=== PATIENT | female | born 1990 | race Caucasian/White ===

== ENCOUNTER 2016-03-15 08:10 | Emergency (ER) | payer OTHER ==
[2016-03-15] MEDS ORDERED: NS 0.9% 1000 ML* 1,000 ML IV ONE (09:08)
[2016-03-15] MEDS ORDERED: Ketorolac INJ* 30 MG/ML 1 ML VIAL IV ONE (09:08)
[2016-03-15] MEDS ORDERED: Ondansetron INJ* 2 MG/ML VIAL IV ONE (09:08)
[2016-03-15] MEDS ORDERED: Ketorolac INJ* 30 MG/ML 1 ML VIAL ONE (09:09)
[2016-03-15 09:10] LABS: Hematocrit 36 % (35-47); Hemoglobin 12.1 g/dl (12.0-16.0); Mean Corpuscular HGB Conc 34 g/dl (31-36); Mean Corpuscular Hemoglobin 32 pg (27-31); Mean Corpuscular Volume 95 fL (80-97); Mean Platelet Volume 7 um3 (7.4-10.4); Red Blood Count 3.74 10^6/ul (4.0-5.4); Red Cell Distribution Width 14 % (10.5-15); White Blood Count 10.2 10^3/ul (3.5-10.8)
[2016-03-15 09:15] LABS: Urine Bacteria Absent (Absent); Urine Bilirubin Negative (Negative); Urine Glucose Negative (Negative); Urine Nitrite Negative (Negative)
[2016-03-15 09:29] LABS: Albumin 3.9 g/dL (3.2-5.2); BUN/Creatinine Ratio 11.9 (8-20); C Reactive Protein 19.81 mg/L (< 5.00); EGFR African American 105.4 (>60); Globulin 3.2 g/dL (2-4); Potassium 4.4 mmol/L (3.5-5.0); Total Bilirubin 0.4 mg/dL (0.2-1.0); Total Protein 7.1 g/dL (6.4-8.9)
[2016-03-15 11:02] VITALS: BP 94/62
--- NOTE | 2016-03-15 11:18 | ED ---
Milka Pedersen Matthew, scribed for Peg Ricardo MD on 03/15/16 at 0902 . Abdominal Pain/Female - HPI Summary HPI Summary: A 25 y/o female presents to the ED with intermittent, sudden lower pelvic pain since 5 days ago. The pain is rated 3/10 in severity and 9/10 in severity at its worst, described as cramping, and radiates to the back, anus, and hips. Associated symptoms include nausea, fever, chills, diaphoresis, constipation - last BM this morning, and occasionally wakes up in the middle of the night to urinate. The patient denies vomiting, diarrhea, dysuria, blood w/ stool, chest pain, and SOB. The pain is partially alleviated by ibuprofen. The patient states she recently started control for the first time just before her period. She then stopped the control after abdominal cramping. She had similar symptoms 6 months ago during her period. The patient also normally has pain with BM during her period, which starts just before and alleviated when her period ends; however, the symptoms persist after her period. Her menstrual cycle started 8 days ago. - History of Current Complaint Chief Complaint: EDAbdPain Stated Complaint: ABD CRAMPING Time Seen by Provider: 03/15/16 08:41 Hx Obtained From: Patient ?: No Onset/Duration: Sudden Onset, Lasting Days, Still Present Timing: Intermittent Episode Lasting Severity Initially: Moderate Severity Currently: Moderate Pain Intensity: 9 Pain Scale Used: 0-10 Numeric Location: Other - Pelvic Radiates: Yes Radiates to: Back, Other - anus, hips Character: Cramping Alleviating Factor(s): Medications - ibuprofen Associated Signs and Symptoms: Positive: Diaphoresis, Fever, Back Pain, Constipation, Nausea. Negative: Chest Pain, Blood in Stool, Vomiting, Diarrhea Allergies/Adverse Reactions: Allergies Allergy/AdvReac Type Severity Reaction Status Date / Time No Known Allergies Allergy Verified 03/15/16 08:19 PMH/Surg Hx/FS Hx/Imm Hx Previously Healthy: Yes Respiratory History: Denies: Hx Asthma Infectious Disease History: No Infectious Disease History: Denies: Traveled Outside the [place] in Last 30 Days - Family History Family History: FHx of thyroid disease - Social History Alcohol Use: Occasionally Hx Substance Use: No Substance Use Type: Reports: None Hx Tobacco Use: No Smoking Status (MU): Never Smoked Tobacco Review of Systems Positive: Fever, Chills, Skin Diaphoresis Eyes: Negative Positive: Sore Throat - yesterday Cardiovascular: Negative Negative: Chest Pain Respiratory: Negative Positive: Abdominal Pain - pelvic pain , Nausea, Other - contipation. Negative : Vomiting, Diarrhea Genitourinary: Other - wakes up in the middle of the night to urinate Musculoskeletal: Negative Skin: Negative Neurological: Negative Psychological: Normal All Other Systems Reviewed And Are Negative: Yes Physical Exam Triage Information Reviewed: Yes Vital Signs On Initial Exam: Initial Vitals Temp Pulse Resp BP Pulse Ox 99.0 F 83 15 93/63 99 03/15/16 08:19 03/15/16 08:19 03/15/16 08:19 03/15/16 08:19 03/15/16 08:19 Vital Signs Reviewed: Yes Appearance: Positive: Well-Nourished, Pain Distress - tearful on exam Skin: Positive: Warm, Skin Color Reflects Adequate Perfusion, Dry Eyes: Positive: EOMI, SHAWNA ENT: Positive: Pharynx normal Neck: Positive: Supple, Nontender Respiratory/Lung Sounds: Positive: Clear to Auscultation, Breath Sounds Present. Negative: Rales, Rhonchi, Wheezes Cardiovascular: Positive: RRR. Negative: Murmur Abdomen Description: Positive: Soft, Other: - Diffuse abdominal tenderness. Negative: Distended, Guarding Bowel Sounds: Positive: Present Musculoskeletal: Positive: Strength/ROM Intact. Negative: Edema Left, Edema Right Neurological: Positive: Normal, Sensory/Motor Intact, Alert, Oriented to Person Place, Time, CN Intact II-III - II-XII Psychiatric: Positive: Normal, Affect/Mood Appropriate Diagnostics - Vital Signs Vital Signs Temp Pulse Resp BP Pulse Ox 03/15/16 08:19 99.0 F 83 15 93/63 99 - Laboratory Lab Results: Lab Results 03/15/16 03/15/16 03/15/16 Range/Units 08:45 09:01 09:01 WBC 10.2 (3.5-10.8) 10^3/ul RBC 3.74 L (4.0-5.4) 10^6/ul Hgb 12.1 (12.0-16.0) g/dl Hct 36 (35-47) % MCV 95 (80-97) fL MCH 32 H (27-31) pg MCHC 34 (31-36) g/dl RDW 14 (10.5-15) % Plt Count 236 (150-450) 10^3/ul MPV 7 L (7.4-10.4) um3 Neut % (Auto) 75.5 (38-83) % Lymph % (Auto) 13.3 L (25-47) % [place] % (Auto) 10.4 H (1-9) % Eos % (Auto) 0.5 (0-6) % Baso % (Auto) 0.3 (0-2) % Absolute Neuts (auto) 7.7 (1.5-7.7) 10^3/ul Absolute Lymphs (auto) 1.4 (1.0-4.8) 10^3/ul Absolute Monos (auto) 1.1 H (0-0.8) 10^3/ul Absolute Eos (auto) 0.1 (0-0.6) 10^3/ul Absolute Basos (auto) 0 (0-0.2) 10^3/ul Absolute Nucleated RBC 0 10^3/ul Nucleated RBC % 0 Sodium 137 (133-145) mmol/L Potassium 4.4 (3.5-5.0) mmol/L Chloride 103 (101-111) mmol/L Carbon Dioxide 26 (22-32) mmol/L Anion Gap 8 (2-11) mmol/L BUN 10 (6-24) mg/dL Creatinine 0.84 (0.51-0.95) mg/dL Est GFR ( Amer) 105.4 (>60) Est GFR (Non-Af Amer) 82.0 (>60) BUN/Creatinine Ratio 11.9 (8-20) Glucose 86 (70-100) mg/dL Lactic Acid (0.5-2.0) mmol/L Calcium 9.0 (8.6-10.3) mg/dL Total Bilirubin 0.40 (0.2-1.0) mg/dL AST 17 (13-39) U/L ALT 8 (7-52) U/L Alkaline Phosphatase 32 L (34-104) U/L C-Reactive Protein 19.81 H (< 5.00) mg/L Total Protein 7.1 (6.4-8.9) g/dL Albumin 3.9 (3.2-5.2) g/dL Globulin 3.2 (2-4) g/dL Albumin/Globulin Ratio 1.2 (1-3) Lipase 25 (11.0-82.0) U/L Urine Color Straw Urine Appearance Clear Urine pH 6.0 (5-9) Ur Specific [place] 1.003 L (1.010-1.030) Urine Protein Negative (Negative) Urine Ketones Negative (Negative) Urine Blood 1+ H (Negative) Urine Nitrate Negative (Negative) Urine Bilirubin Negative (Negative) Urine Urobilinogen Negative (Negative) Ur Leukocyte Esterase Negative (Negative) Urine WBC (Auto) Absent (Absent) Urine RBC (Auto) 1+(3-5/hpf) H (Absent) Urine Bacteria Absent (Absent) Urine Glucose Negative (Negative) 03/15/16 Range/Units 09:01 WBC (3.5-10.8) 10^3/ul RBC (4.0-5.4) 10^6/ul Hgb (12.0-16.0) g/dl Hct (35-47) % MCV (80-97) fL MCH (27-31) pg MCHC (31-36) g/dl RDW (10.5-15) % Plt Count (150-450) 10^3/ul MPV (7.4-10.4) um3 Neut % (Auto) (38-83) % Lymph % (Auto) (25-47) % [place] % (Auto) (1-9) % Eos % (Auto) (0-6) % Baso % (Auto) (0-2) % Absolute Neuts (auto) (1.5-7.7) 10^3/ul Absolute Lymphs (auto) (1.0-4.8) 10^3/ul Absolute Monos (auto) (0-0.8) 10^3/ul Absolute Eos (auto) (0-0.6) 10^3/ul Absolute Basos (auto) (0-0.2) 10^3/ul Absolute Nucleated RBC 10^3/ul Nucleated RBC % Sodium (133-145) mmol/L Potassium (3.5-5.0) mmol/L Chloride (101-111) mmol/L Carbon Dioxide (22-32) mmol/L Anion Gap (2-11) mmol/L BUN (6-24) mg/dL Creatinine (0.51-0.95) mg/dL Est GFR ( Amer) (>60) Est GFR (Non-Af Amer) (>60) BUN/Creatinine Ratio (8-20) Glucose (70-100) mg/dL Lactic Acid 0.8 (0.5-2.0) mmol/L Calcium (8.6-10.3) mg/dL Total Bilirubin (0.2-1.0) mg/dL AST (13-39) U/L ALT (7-52) U/L Alkaline Phosphatase (34-104) U/L C-Reactive Protein (< 5.00) mg/L Total Protein (6.4-8.9) g/dL Albumin (3.2-5.2) g/dL Globulin (2-4) g/dL Albumin/Globulin Ratio (1-3) Lipase (11.0-82.0) U/L Urine Color Urine Appearance Urine pH (5-9) Ur Specific [place] (1.010-1.030) Urine Protein (Negative) Urine Ketones (Negative) Urine Blood (Negative) Urine Nitrate (Negative) Urine Bilirubin (Negative) Urine Urobilinogen (Negative) Ur Leukocyte Esterase (Negative) Urine WBC (Auto) (Absent) Urine RBC (Auto) (Absent) Urine Bacteria (Absent) Urine Glucose (Negative) Result Diagrams: 03/15/16 09:01 03/15/16 09:01 Lab Statement: Any lab studies that have been ordered have been reviewed, and results considered in the medical decision making process. Abdominal Pain Fem Course/Dx - Course Course Of Treatment: 25 yo female with pelvic pain with periods, she barely tolerated a pelvic exam which looked normal, labs normal, better after toradol. Pt didn't want small course of narcotics, will take naprosyn and tylenol when her period comes and f/u with schedule clerk - Diagnoses Provider Diagnoses: Pelvic pain Discharge - Discharge Plan Condition: Stable Disposition: HOME Patient Education Materials: Pelvic Pain in Women (ED) Referrals: Stephany Vargas NP [Primary Care Provider] - The documentation as recorded by the Milka ca Matthew accurately reflects the service I personally performed and the decisions made by me, Peg Ricardo MD.
== END 2016-03-15 12:34 | disposition home or self-care (01) ==
LOC: ED 08:10
DX: R10.2 Pelvic and perineal pain (principal)
CPT/HCPCS: 36415; 80053; 81003; 81015; 83605; 83690; 85025; 86140; 96360; 96374; 96375; 99282; J1885; J2405

== ENCOUNTER 2016-03-22 12:54 | Emergency (ER) | payer OTHER ==
[2016-03-22 15:27] LABS: Hematocrit 38 % (35-47); Hemoglobin 12.5 g/dl (12.0-16.0); Mean Corpuscular HGB Conc 33 g/dl (31-36); Mean Corpuscular Hemoglobin 31 pg (27-31); Mean Corpuscular Volume 94 fL (80-97); Mean Platelet Volume 7 um3 (7.4-10.4); Red Blood Count 3.98 10^6/ul (4.0-5.4); Red Cell Distribution Width 14 % (10.5-15); White Blood Count 10.1 10^3/ul (3.5-10.8)
[2016-03-22 15:35] LABS: Urine Bilirubin Negative (Negative); Urine Glucose Negative (Negative); Urine Nitrite Negative (Negative)
[2016-03-22 15:43] LABS: ALT 9 U/L (7-52); AST 13 U/L (13-39); Alkaline Phosphatase 48 U/L (34-104); Anion Gap 5 mmol/L (2-11); BUN/Creatinine Ratio 8.4 (8-20); Blood Urea Nitrogen 7 mg/dL (6-24); CO2 Carbon Dioxide 30 mmol/L (22-32); Calcium 9.4 mg/dL (8.6-10.3); Chloride 99 mmol/L (101-111); EGFR African American 106.9 (>60); EGFR Non-African American 83.1 (>60); Globulin 3.7 g/dL (2-4); Glucose 85 mg/dL (70-100); Lipase 20 U/L (11.0-82.0); Sodium 134 mmol/L (133-145); Total Protein 7.7 g/dL (6.4-8.9)
--- NOTE | 2016-03-22 16:30 | RAD ---
HISTORY: Pelvic pain, fever, chills COMPARISONS: None TECHNIQUE: Multiple transverse and longitudinal ultrasound images were obtained of the pelvis using grayscale, color Doppler, and spectral Doppler imaging using the endovaginal transducer. FINDINGS: UTERUS: The uterus measures 6.9 x 2.9 x 3.7 cm. There is a complex fluid collection noted between the uterus and the right ovary measuring approximately 9.3 x 5.6 x 8 cm in size. There is a fluid-fluid level. There are thick internal septations. ENDOMETRIUM: The endometrial stripe is smooth. The endometrium measures 0.7 cm in thickness. CUL-DE-SAC: There is no free fluid within the cul-de-sac. RIGHT OVARY: The right ovary measures 4.6 x 3.7 x 4 cm. Multiple follicles are noted. Normal arterial and venous waveforms are identifiable within the ovary on spectral Doppler imaging. As noted above, there is a complex fluid collection between the right ovary and the uterus. LEFT OVARY: The left ovary measures 4 x 3 x 2.8 cm. Normal arterial and venous waveforms are identifiable within the ovary on spectral Doppler imaging. Multiple follicles are noted. BLADDER: The bladder is not well visualized. IMPRESSION: THERE IS A COMPLEX FLUID COLLECTION BETWEEN THE UTERUS AND THE RIGHT OVARY MEASURING UP TO 9.3 CM IN SIZE. GIVEN THE HISTORY OF FEVER AND CHILLS AND PAIN, DIFFERENTIAL INCLUDES TUBO-OVARIAN ABSCESS
--- NOTE | 2016-03-22 16:47 | ED ---
Abdominal Pain/Female - HPI Summary HPI Summary: 25 F presents with pelvic pain for 3 weeks. She has seen last week and diagnosed with constipation. She has been taking miralax and senna which has helped with her constipation. She had a normal BM today. She admits to chilling, vomiting, and anorexia. She denies any fever. She states her pain increases every time she eat something. Her LMP was 3 weeks ago. - History of Current Complaint Pain Intensity: 5 <Kinsey Mclaughlin - Last Filed: 03/22/16 19:04> - HPI Summary HPI Summary: Patient denies vomiting during my examination with her, mild episode of chills. pain resolved with Toradol, regular BMS with current bowel regimen, still has rectal fullness and feeling like has to have BM after voiding. no urinary sytmpoms, recent STD testing at , patient states was negative. 3 weeks ago started OCPs, stopped after 1 week due to abdominal cramping, lower pelvic pain ever since. - History of Current Complaint Hx Obtained From: Patient, Family/Community Organization Worker - friend ?: No Timing: Constant Severity Initially: Moderate Severity Currently: Moderate Pain Scale Used: 0-10 Numeric <Anai Shane - Last Filed: 03/22/16 23:14> - History of Current Complaint Chief Complaint: EDAbdPain Stated Complaint: ABD PAIN Time Seen by Provider: 03/22/16 15:00 Allergies/Adverse Reactions: Allergies Allergy/AdvReac Type Severity Reaction Status Date / Time No Known Allergies Allergy Verified 03/15/16 08:19 PMH/Surg Hx/FS Hx/Imm Hx Endocrine/Hematology History: Denies: Hx Anticoagulant Therapy Respiratory History: Denies: Hx Asthma Infectious Disease History: No Infectious Disease History: Denies: Traveled Outside the [place] in Last 30 Days - Family History Known Family History: Negative: Cardiac Disease Family History: FHx of thyroid disease - Social History Alcohol Use: Occasionally Hx Substance Use: No Substance Use Type: Reports: None Hx Tobacco Use: No Smoking Status (MU): Never Smoked Tobacco <Kinsey Mclaughlin - Last Filed: 03/22/16 19:04> Previously Healthy: Yes <Anai Shane - Last Filed: 03/22/16 23:14> Review of Systems Negative: Fever Negative: Chest Pain Negative: Shortness Of Breath Positive: Abdominal Pain - pelvic, Vomiting, Nausea. Negative: Diarrhea All Other Systems Reviewed And Are Negative: Yes <Kinsey Mclaughlin - Last Filed: 03/22/16 19:04> Musculoskeletal: Negative Skin: Negative Neurological: Negative Psychological: Normal <Anai Shane - Last Filed: 03/22/16 23:14> Physical Exam Triage Information Reviewed: Yes Vital Signs On Initial Exam: Initial Vitals Temp Pulse Resp BP Pulse Ox 98.2 F 91 18 134/64 100 03/22/16 12:56 03/22/16 12:56 03/22/16 12:56 03/22/16 12:56 03/22/16 12:56 Vital Signs Reviewed: Yes Appearance: Positive: Well-Appearing Skin: Positive: Warm, Dry Head/Face: Positive: Normal Head/Face Inspection Eyes: Positive: Normal, Conjunctiva Clear ENT: Positive: Normal ENT inspection, Pharynx normal, TMs normal Respiratory/Lung Sounds: Positive: Clear to Auscultation, Breath Sounds Present Cardiovascular: Positive: Normal, RRR Abdomen Description: Positive: Soft, Other: - mild tenderness to suprapubic region, no rebound tenderness Bowel Sounds: Positive: Present - [place] Coma Scale Coma Scale Total: 15 <Kinsey Mclaughlin - Last Filed: 03/22/16 19:04> Vital Signs On Initial Exam: Initial Vitals Temp Pulse Resp BP Pulse Ox 98.2 F 91 18 134/64 100 03/22/16 12:56 03/22/16 12:56 03/22/16 12:56 03/22/16 12:56 03/22/16 12:56 Abdomen Description: Positive: Other: Pelvic Exam: Positive: external exam normal - normal, speculum exam normal - normal, no masses, other - no cervical motion tenderness, no strawberry cervix, tenderness with palpation over uterus and L ovary region no tenderness R side Neurological: Positive: Normal, Sensory/Motor Intact, Alert, Oriented to Person Place, Time Psychiatric: Positive: Normal AVPU Assessment: Alert <Anai Shane - Last Filed: 03/22/16 23:14> Diagnostics - Vital Signs Vital Signs Temp Pulse Resp BP Pulse Ox 03/22/16 14:49 98.7 F 77 16 97/60 100 03/22/16 12:56 98.2 F 91 18 134/64 100 - Laboratory Lab Results: Lab Results 03/22/16 03/22/16 03/22/16 Range/Units 15:18 15:18 15:24 WBC 10.1 (3.5-10.8) 10^3/ul RBC 3.98 L (4.0-5.4) 10^6/ul Hgb 12.5 (12.0-16.0) g/dl Hct 38 (35-47) % MCV 94 (80-97) fL MCH 31 (27-31) pg MCHC 33 (31-36) g/dl RDW 14 (10.5-15) % Plt Count 349 (150-450) 10^3/ul MPV 7 L (7.4-10.4) um3 Neut % (Auto) 74.2 (38-83) % Lymph % (Auto) 17.9 L (25-47) % [place] % (Auto) 6.7 (1-9) % Eos % (Auto) 0.6 (0-6) % Baso % (Auto) 0.6 (0-2) % Absolute Neuts (auto) 7.5 (1.5-7.7) 10^3/ul Absolute Lymphs (auto) 1.8 (1.0-4.8) 10^3/ul Absolute Monos (auto) 0.7 (0-0.8) 10^3/ul Absolute Eos (auto) 0.1 (0-0.6) 10^3/ul Absolute Basos (auto) 0.1 (0-0.2) 10^3/ul Absolute Nucleated RBC 0 10^3/ul Nucleated RBC % 0 Sodium 134 (133-145) mmol/L Potassium 4.0 (3.5-5.0) mmol/L Chloride 99 L (101-111) mmol/L Carbon Dioxide 30 (22-32) mmol/L Anion Gap 5 (2-11) mmol/L BUN 7 (6-24) mg/dL Creatinine 0.83 (0.51-0.95) mg/dL Est GFR ( Amer) 106.9 (>60) Est GFR (Non-Af Amer) 83.1 (>60) BUN/Creatinine Ratio 8.4 (8-20) Glucose 85 (70-100) mg/dL Calcium 9.4 (8.6-10.3) mg/dL Total Bilirubin 0.30 (0.2-1.0) mg/dL AST 13 (13-39) U/L ALT 9 (7-52) U/L Alkaline Phosphatase 48 (34-104) U/L C-React Prot High Sens 16.75 mg/L Total Protein 7.7 (6.4-8.9) g/dL Albumin 4.0 (3.2-5.2) g/dL Globulin 3.7 (2-4) g/dL Albumin/Globulin Ratio 1.1 (1-3) Lipase 20 (11.0-82.0) U/L Beta HCG, Quant < 0.60 mIU/mL Urine Color Yellow Urine Appearance Clear Urine pH 7.0 (5-9) Ur Specific [place] 1.010 (1.010-1.030) Urine Protein Negative (Negative) Urine Ketones Negative (Negative) Urine Blood Negative (Negative) Urine Nitrate Negative (Negative) Urine Bilirubin Negative (Negative) Urine Urobilinogen Negative (Negative) Ur Leukocyte Esterase Negative (Negative) Urine Glucose Negative (Negative) Result Diagrams: 03/22/16 15:18 03/22/16 15:18 Lab Statement: Any lab studies that have been ordered have been reviewed, and results considered in the medical decision making process. - Ultrasound No standard instances Ultrasound Interpretation: Positive (See Comments) - IMPRESSION: THERE IS A COMPLEX FLUID COLLECTION BETWEEN THE UTERUS AND THE RIGHT OVARY MEASURING UP TO 9.3 CM IN SIZE. GIVEN THE HISTORY OF FEVER AND CHILLS AND PAIN, DIFFERENTIAL INCLUDES TUBO-OVARIAN ABSCESS Ultrasound Interpretation Completed By: Radiologist <Kinsey Mclaughlin - Last Filed: 03/22/16 19:04> - Vital Signs Vital Signs Temp Pulse Resp BP Pulse Ox 03/22/16 22:00 74 101/75 98 03/22/16 21:30 60 88/49 98 03/22/16 21:00 62 97/63 96 03/22/16 20:30 67 107/74 98 03/22/16 20:23 68 99 03/22/16 20:20 100/66 03/22/16 19:34 68 99 03/22/16 19:00 68 99 03/22/16 18:06 62 100 03/22/16 18:05 61 100 03/22/16 18:01 98.4 F 60 14 99/67 100 03/22/16 14:49 98.7 F 77 16 97/60 100 03/22/16 12:56 98.2 F 91 18 134/64 100 - Laboratory Lab Results: Lab Results 03/22/16 03/22/16 03/22/16 Range/Units 15:18 15:18 15:24 WBC 10.1 (3.5-10.8) 10^3/ul RBC 3.98 L (4.0-5.4) 10^6/ul Hgb 12.5 (12.0-16.0) g/dl Hct 38 (35-47) % MCV 94 (80-97) fL MCH 31 (27-31) pg MCHC 33 (31-36) g/dl RDW 14 (10.5-15) % Plt Count 349 (150-450) 10^3/ul MPV 7 L (7.4-10.4) um3 Neut % (Auto) 74.2 (38-83) % Lymph % (Auto) 17.9 L (25-47) % [place] % (Auto) 6.7 (1-9) % Eos % (Auto) 0.6 (0-6) % Baso % (Auto) 0.6 (0-2) % Absolute Neuts (auto) 7.5 (1.5-7.7) 10^3/ul Absolute Lymphs (auto) 1.8 (1.0-4.8) 10^3/ul Absolute Monos (auto) 0.7 (0-0.8) 10^3/ul Absolute Eos (auto) 0.1 (0-0.6) 10^3/ul Absolute Basos (auto) 0.1 (0-0.2) 10^3/ul Absolute Nucleated RBC 0 10^3/ul Nucleated RBC % 0 Sodium 134 (133-145) mmol/L Potassium 4.0 (3.5-5.0) mmol/L Chloride 99 L (101-111) mmol/L Carbon Dioxide 30 (22-32) mmol/L Anion Gap 5 (2-11) mmol/L BUN 7 (6-24) mg/dL Creatinine 0.83 (0.51-0.95) mg/dL Est GFR ( Amer) 106.9 (>60) Est GFR (Non-Af Amer) 83.1 (>60) BUN/Creatinine Ratio 8.4 (8-20) Glucose 85 (70-100) mg/dL Calcium 9.4 (8.6-10.3) mg/dL Total Bilirubin 0.30 (0.2-1.0) mg/dL AST 13 (13-39) U/L ALT 9 (7-52) U/L Alkaline Phosphatase 48 (34-104) U/L C-React Prot High Sens 16.75 mg/L Total Protein 7.7 (6.4-8.9) g/dL Albumin 4.0 (3.2-5.2) g/dL Globulin 3.7 (2-4) g/dL Albumin/Globulin Ratio 1.1 (1-3) Lipase 20 (11.0-82.0) U/L Beta HCG, Quant < 0.60 mIU/mL Urine Color Yellow Urine Appearance Clear Urine pH 7.0 (5-9) Ur Specific [place] 1.010 (1.010-1.030) Urine Protein Negative (Negative) Urine Ketones Negative (Negative) Urine Blood Negative (Negative) Urine Nitrate Negative (Negative) Urine Bilirubin Negative (Negative) Urine Urobilinogen Negative (Negative) Ur Leukocyte Esterase Negative (Negative) Urine Glucose Negative (Negative) Result Diagrams: 03/22/16 15:18 03/22/16 15:18 Lab Statement: Any lab studies that have been ordered have been reviewed, and results considered in the medical decision making process. <Anai Shane - Last Filed: 03/22/16 23:14> Re-Evaluation - Re-Evaluation First Eval Re-Evaluation Time: 18:56 Change: Improved Comment: explained results and patient says pain resolved with toradol <Kinsey Mclaughlin - Last Filed: 03/22/16 19:04> Abdominal Pain Fem Course/Dx - Course Course Of Treatment: 25 F present with pelvic pain for 3 weeks. pain is worst with eating. had constipation but that has resolved with miralax and senna. [facility] and that was normal. patient says there is no change that has a STD and declined pelvic exam. abdomen mild tenderess suprapubic: do not suspect appendicitis, u/s showed fluid collection. spoke with dr alcantra who said unlikely PID, ruptured cyst, or TOA. spoke with dr cruz who said to get CT , signed out to Anai HUANG pending CT for dispo - Diagnoses Differential Diagnosis: Positive: Appendicitis, Ovarian Cyst, Pelvic Inflammatory Disease, , Urinary Tract Infection <Kinsey Mclaughlin - Last Filed: 03/22/16 19:04> - Course Course Of Treatment: CT- fluid collection, spoke with DR. ALCANTAR and DR. CRUZ will follow up within 1 week, continue toradol, percocet for pain, increase bowel regimen with daily sennakot - Diagnoses Is Visit Related: Yes <Anai Shane - Last Filed: 03/22/16 23:14> - Diagnoses Provider Diagnoses: Pelvic pain, Pelvic cyst Discharge - Discharge Plan Discharge Disposition Comment: signed out to Anai <Kinsey Mclaughlin - Last Filed: 03/22/16 19:04> <Anai Shane - Last Filed: 03/22/16 23:14> - Discharge Plan Condition: Stable Disposition: HOME Prescriptions: Docusate CAP* [Colace Cap*] 100 mg PO BID #60 cap Ketorolac TAB (NF) [Toradol TAB (NF)] 10 mg PO Q8H PRN #9 tab PRN Reason: Pain Sennosides [Senna-Lax] 8.6 mg PO DAILY #30 tab oxyCODONE/Acetamin 5/325 MG* [Percocet 5/325 TAB*] 1 tab PO Q6H PRN #10 tab MDD 4 PRN Reason: Pain Patient Education Materials: Pelvic Pain in Women (ED), Cyst (ED) Referrals: Kenneth Alcantar MD [Medical Doctor] - 1 Week (call tomorrow for appointment ) Stephany Vargas NP [Primary Care Provider] - Obey Cruz MD [Medical Doctor] - 1 Week (follow up within 1 week ) Additional Instructions: - Follow up with OBGYN within 1 week - Take Tylenol or ibuprofen for pain every 6 hours - Return to ED if develop fever or any new or worsening symptoms - TOradol for abdominal pain, use sparingly - Percocet for severe pain - Return to Er with increased pain, fever, chills, nausea/ vomiting or no bowel motion in 24 hours
[2016-03-22] MEDS ORDERED: NS 0.9% 1000 ML* 1,000 ML IV ONE (17:19)
[2016-03-22] MEDS ORDERED: Ketorolac INJ* 30 MG/ML 1 ML VIAL IV PUSH ONE (17:19)
[2016-03-22] MEDS ORDERED: Iohexol 300* (CONTRAST) 10 ML SDV IV ONE (19:37)
--- NOTE | 2016-03-22 19:56 | RAD ---
CLINICAL HISTORY: Pelvic pain COMPARISON: Ultrasound dated March 22, 2016 TECHNIQUE: Multiple contiguous axial CT scans were obtained of the abdomen and pelvis after the administration of intravenous contrast. Coronal and sagittal multiplanar reformations are submitted for review. Oral contrast was administered. Delayed images were obtained through the abdomen FINDINGS: LUNG BASES: The lung bases are clear. LIVER: The liver is normal in shape, size, contour, and attenuation. BILE DUCTS: There is no intrahepatic or extrahepatic biliary dilatation. GALLBLADDER: The gallbladder is normal, without pericholecystic inflammatory change. PANCREAS: The pancreas is normal, without mass or ductal dilatation. SPLEEN: Normal in size and appearance. UPPER GI TRACT: Evaluation of the gastrointestinal tract is limited by incomplete gastric distention. The upper GI tract is unremarkable. SMALL BOWEL AND MESENTERY: The small bowel is normal in contour, course, and caliber. There is no obstruction or dilatation. COLON: The colon is normal in contour, course, caliber. There is no pericolonic inflammatory change. The appendix is not clearly identified. ADRENALS: Normal bilaterally. KIDNEYS: The kidneys are normal in shape, size, contour, and axis. There is no hydronephrosis or nephrolithiasis. BLADDER: The bladder is smooth in contour. PELVIC ORGANS: There is a loculated fluid collection within the pouch of Julia. There is a thick internal septation. This measures approximately 7.9 x 7 x 8 cm in size. This appears to correspond to the finding noted on sonography AORTA: The aorta is normal. IVC: Unremarkable LYMPH NODES: There is no lymphadenopathy by size criteria. ABDOMINAL WALL: There is no evidence for abdominal wall hernia. BONES AND SOFT TISSUES: The bones and soft tissues are unremarkable. OTHER: None IMPRESSION: THERE IS A LOCULATED FLUID COLLECTION WITHIN THE POUCH OF JULIA THAT APPEARS TO CORRESPOND TO THE FINDING NOTED ON SONOGRAPHY PERFORMED THE SAME DATE. THE DIFFERENTIAL INCLUDES ABSCESS WITHIN THE CORRECT CLINICAL SETTING. GIVEN THE LOCATION, THIS MAY BE PELVIC OR COLONIC IN ORIGIN. THE IMAGING APPEARANCE IS INDETERMINATE..
[2016-03-22] MEDS ORDERED: Ondansetron INJ* 2 MG/ML VIAL IV ONE (20:23)
[2016-03-22] MEDS ORDERED: oxyCODONE/Acetamin 5/325 MG* TAB PO ONE (20:23)
[2016-03-22] MEDS ORDERED: NS 0.9% 1000 ML* 1,000 ML IV SCH (20:30)
[2016-03-22 22:17] VITALS: BP 101/75
== END 2016-03-22 22:35 | disposition home or self-care (01) ==
LOC: ED 12:54
DX: R10.2 Pelvic and perineal pain (principal); N94.89 Other specified conditions associated with female genital organs and menstrual cycle
CPT/HCPCS: 36415; 74177; 76830; 80053; 81003; 83690; 84702; 85025; 86141; 87480; 87491; 87510; 87591; 87661; 96360; 96374; 96375; 99284; A9270-GY; J1885; J2405; Q9967

== ENCOUNTER → 2016-03-26 06:16 | Day surgery (SDC) | payer OTHER ==
[~2016-03-26 06:16] MED LIST: Acetaminophen TAB* 325 MG PO PRN; Atracurium* 10 MG/ML 10 ML VIAL ONE; Buffered Lidocaine 1% SYR 3ML* 3 ML/SYR SYRINGE INTRADERM ONE; Bupivacaine 0.5% W/EPI SDV* 30 ML VIAL ONE; Dexamethasone IV* 4 MG/ML 1 ML (4 MG) ONE; Docusate CAP* 100 MG PO PRN; HYDROcodone/ACETAMIN 5-325 MG* 1 TAB PO PRN; HYDROmorphone INJ* 1 MG/ML CARPUJECT SYRINGE ONE; Ibuprofen TAB* 600 MG PO PRN; Ketorolac INJ* 30 MG/ML 1 ML VIAL ONE; Magnesium Hydroxide LIQ* 30 ML UDC PO PRN; Midazolam* 1 MG/ML 5 ML VIAL (5 MG) ONE; Ondansetron INJ* 2 MG/ML VIAL IV PRN; Ondansetron INJ* 2 MG/ML VIAL ONE; Propofol* 10 MG/ML 20 ML BTL IV PUSH ONE; Scopolamine 1.5 mg* PATCH ONE; diPHENhydraMINE IV* 50 MG/ML 1 ml VIAL (BENADRYL) IV PRN; fentaNYL* 50 MCG/ML 2 ML VIAL (100 MCG VIAL) ONE; oxyCODONE TAB* 5 MG TAB ONE; oxyCODONE TAB* 5 MG TAB PO PRN
[2016-03-26] MEDS: fentaNYL* 50 MCG/ML 2 ML VIAL (100 MCG VIAL) IV PRN ×4 (11:45→12:23)
[2016-03-26] MEDS: HYDROmorphone INJ* 1 MG/ML CARPUJECT SYRINGE IV PRN ×4 (11:46→12:14)
[2016-03-26] MEDS: oxyCODONE TAB* 5 MG TAB PO PRN ×2 (12:10→12:11)
[2016-03-26 15:40] VITALS: BP 91/70
--- NOTE | 2016-03-26 18:18 | CONS ---
CC: Stephany Marks NP; Dr. Ashley Avalos at [facility] SURGICAL CONSULTATION REPORT: DATE OF CONSULT: This is an intraoperative consultation by the manager of security. HISTORY OF PRESENT ILLNESS: I was contacted by the Gynecology Department regarding the patient on t he operating table for a mini laparotomy and drainage of a pelvic cyst. During the dissection, the cyst was entered and evacuated. Portion of the wall was sent for specime n and the fluid was sent for Gram stain, culture, and sensitivity. There was a question whether this was more of a mucin versus an abscess versus simple cyst type of picture as well as the involvement of bowel. The patient's CT scan was reviewed. The patient has no significant past medical history. Intraoperatively, we were able to clearly see the uterus which appeared intact. Anterior to this, th ere were no lesions. Posterior to the uterus and extending through the cul-de-sac was remnants of t he cyst. Left and right ovaries were identified and within normal limits. The cecum was identified and rotated towards the midline. No appendix could be seen and would possibly either not be presen t or be retrocecal and we would have to extend the incision to show that. The cecum did not appear inflamed. Attention was then turned towards the sigmoid colon. This was intact right up to the pelvic brim. As this extended, there was some induration in the rectosigmoid junction, but without injury. This cul-de-sac extending towards the rectosigmoid junction did show induration as well as some exudative tissue and for this reason, my recommendation was to place a ACE drain within the cul-de-sac until c ultures are resulted. The patient can see me in the office followup for ACE drain removal. Again, I recommend antibiotics if cultures are positive. Differential diagnosis aside from ovarian cyst would be tubo-ovarian abscess versus diverticular abs cess. [id number]/[facility] #: [id number]
--- NOTE | 2016-03-26 21:39 | OP ---
OPERATIVE REPORT: DATE OF OPERATION: 03/26/16 DATE OF : 88 SURGEON: Ashley Avalos MD OIL REFINERY OPERATOR: Dr. Douglas with Dr. Ibrahim providing intraoperative consult. ANESTHESIA: General endotracheal. PRE-OP DIAGNOSIS: Pelvic mass. POST-OP DIAGNOSIS: Pelvic fluid collection. OPERATIVE PROCEDURE: Laparotomy, drainage of pelvic fluid collection and exploration of the pelvis. ESTIMATED BLOOD LOSS: Minimal. SPECIMEN: Cyst wall, cystic fluid, and cultures. FINDINGS: There was a thick-walled fluid collection in the pouch of kayla between the uterus, the sigmoid colon and the pelvic side wall and adnexa. The ovaries were adhesed to the wall but when released appeared normal. The left tube was normal and the right tube was just slight inflammed where it had been adhesed densely to the wall. The fluid appeared mostly clear with very slight cloudiness. The secum appeared rosas - no appendix identified. FLUIDS: Crystalloid. DRAINS: Nicholson catheter, #7 ACE drain. DESCRIPTION OF PROCEDURE: On entrance to the abdominal cavity, the anterior part of the uterus appeared normal. The left tube was immediately noted and appeared to be normal. The posterior cul-de-sac and the right adnexa were densely adhesed, entrance was made into this thick walled fluid collection and fluid was sent as specimen, as well as draining the rest of the fluid. Adhesions were released around both the right and the left adnexa, releasing both ovaries, which appeared to be normal and the right tube was just slightly inflamed where it was adhesed to the fluid collection. There was also thick wall adhesed to the sigmoid colon and along the posterior wall of the uterus. General Surgery consult was requested intraoperatively to inspect the bowel. Please see separate dictated note for the details. Per General Surgery recommendation, a ACE drain was placed. The peritoneum was then closed with 3-0 chromic in a running unlocked fashion. The fascia was closed with 0 Vicryl in a running unlocked fashion. The skin was closed with 4-0 Vicryl in a running subcuticular fashion. Mastisol and Steri-Strips were placed and dressing was placed. The drain was secured in place with suture. The patient was then awaken from anesthesia and moved to the stretcher and taken to the recovery room in stable condition. [id number]/[facility] #: [id number] [facility]
== END | disposition home or self-care (01) ==
LOC: OR 06:16
PROVIDERS: ATTEND Obstetrics & Gynecology
DX: N80.3 Endometriosis of pelvic peritoneum (principal); R19.09 Other intra-abdominal and pelvic swelling, mass and lump; N73.6 Female pelvic peritoneal adhesions (postinfective)
CPT/HCPCS: 87070; 87073; 87205; 88112; 88304; A9270-GY; J1100; J1170; J1885; J2250; J2405; J2704; J3010

== ENCOUNTER 2017-11-05 19:21 | Emergency (ER) | payer OTHER ==
--- OUTSIDE RECORDS SUMMARY | 2017-11-05 19:36 | XMS REPORT | Continuity of Care Document ---
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 [place] [address] Expires: 2017 Policy Number: [id number] [facility] PayID: [id number] [address] [place] [id number] Effective: 2017 Policy Number: [id number] [facility] Expires: 2017 Group Name: BC/BS of [facility] [address] [address] PayID: [id number] HAIM Robles [address] Effective: 2017 Policy Number: [id number] [facility] Medicaid PayID: [id number] 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 as needed after 3 days without stool. Multivitamin / Active Chewtabs 1 by mouth Unknown Adult 0000 every day Vitamin D / Active Tablets 1000Unit 1 by mouth Unknown 0000 every day Vitamin / Active Tablets 1 per day Unknown B-Complex 0000 Azithromycin 10/11/ Hx Tablets 250mg 6tabs 2 tabs J06.9 [facility] 2017 - today. 1 Shortle, 10/31/ tab daily [employer] 2018 for the following 4 days. Ketoconazole 05/30/ Hx Shampoo 2% 120ml Use as body B36.0 [facility] 2017 - wash from Short, 10/31/ head to [employer] 2018 knees and leave one for 5 min once a day for 3 days Dulcolax 03/18/ Hx Tablets DR 5mg 30tabs 1 tab by K59.09 Jose 2016 - mouth every [place] 10/11/ night after , 2018 dinner as needed. After 3 days without stooling. 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 MANAGER-C 2015 Align 08/04/ Hx Capsules 4mg H66.91 Stephany 2015 - Alicia, 12/04/ TRAINING AND QUALITY MANAGER-C 2015 Azithromycin 07/27/ Hx Tablets 250mg 6tabs take 2 H66.92 Stephany 2015 - tablets Alicia, 12/04/ today then TRAINING AND QUALITY MANAGER-C 2015 1 tablet daily for the next 4 days Guaifenesin-Co 07/27/ Hx Syrup 100-10mg/5 240ml 1-2 H66.92 Stephany deine 2015 - ML teaspoon Alicia, 12/04/ every 4-6 TRAINING AND QUALITY MANAGER-C 2016 hours as needed cough Meclizine HCL 06/25/ Hx Tablets 12.5mg 45tabs take 1 or 2 386.11 Stephany 2013 - tablets Alicia, 12/04/ every 6 TRAINING AND QUALITY MANAGER-C 2016 hours as needed for dizziness No Active Hx Shawnti [facility]ations 2013 - Cesar Cardenas, 07/27/ TRAINING AND QUALITY MANAGER-C 2013 Cetirizine HCL 07/27/ Hx Tablets 10mg 30tabs 1 by mouth 477.9 Shawnti 2013 - every day Cesar Cardenas, 12/04/ for TRAINING AND QUALITY MANAGER-C 2015 allergies Emoquette / Hx Tablets 0.15-30mg- Take One Unknown 0000 - mcg Tablet By 05/30/ Mouth Every 2018 Day Medications Administered in Office Medication Date Status Form Strength Qnty SIG Indications Ordering Provider TB,Intradermal Administered Injection Lab and (PPD, Mantoux) 016 Office Services TB,Intradermal Administered Injection Stephany (PPD, Mantoux) 016 Alicia, TRAINING AND QUALITY MANAGER-C Immunizations CPT Code Status Date Vaccine Lot # [id number] Given 10/31/2017 Tdap (Adacel) [id number] 56691 Given 10/31/2017 Influenza Virus Vaccine, Quadrivalent, 3 Yr > [id number] Quad, Preserv Free 90160 Given 04/01/2017 Influenza Virus Vaccine, Quadrivalent, 3 Yr > Quad, Preserv Free 45146 Given 12/05/2015 Influenza Virus Vaccine, Quadrivalent, 3 Yr > [id number] Quad, Preserv Free 33992 Given 02/29/2008 HPV Vaccine, Gardasil 28368 Given 08/07/2007 HPV Vaccine, Gardasil 42122 Given 04/25/2007 HPV Vaccine, Gardasil 57836 Given 05/06/2006 Menactra (meningococcal conjugate vaccine) 48771 Given 04/13/2004 Td Age 7 to adult (Tenivac, Decavac, AutoRadio Biologics) 07216 Given 11/12/1999 Hep B Vaccine, Ped/Adol Dose 3 Dose (Engerix or Recombivax) 29502 Given 10/14/1998 Hep B Vaccine, Ped/Adol Dose 3 Dose (Engerix or Recombivax) 63982 Given 09/09/1998 Hep B Vaccine, Ped/Adol Dose 3 Dose (Engerix or Recombivax) 47083 Given 05/10/1994 MMR (Measles,Mumps,Rubella) 91470 Given 11/24/1990 DTaP-IPV,Admin To 4 Thru 6 Yrs Of Age Im Use, Kinrix Or Quadracel 96247 Given 07/29/1990 MMR (Measles,Mumps,Rubella) 67674 Given 07/29/1990 Hib (Hemophilus Influenza B) (Acthib) 84724 Given 04/22/1990 Hib (Hemophilus Influenza B) (Acthib) 36744 Given 01/28/1990 Hib (Hemophilus Influenza B) (Acthib) 64471 Given 1989 DTaP-IPV,Admin To 4 Thru 6 Yrs Of Age Im Use, Kinrix Or Quadracel 10362 Given 1990 DTaP-IPV,Admin To 4 Thru 6 Yrs Of Age Im Use, Kinrix Or Quadracel 29558 Given 1990 DTaP-IPV,Admin To 4 Thru 6 Yrs Of Age Im Use, Kinrix Or Quadracel Vital Signs Date Vital Result Comment 10/31/2017 1:30pm Weight 125.00 lb Weight 56.700 kg BP Systolic 98 mmHg BP Diastolic 68 mmHg Heart Rate 68 /min Body Temperature 98.6 F Respiratory Rate 16 /min Height 65 inches 5'5" BMI (Body Mass Index) 20.8 kg/m2 Last Menstrual Period [id number] O2 % BldC Oximetry 98 % 10/11/2017 8:54am Weight 124.00 lb Weight 56.246 kg BP Systolic 92 mmHg BP Diastolic 68 mmHg Heart Rate 68 /min Body Temperature 97.5 F Respiratory Rate 12 /min O2 % BldC Oximetry 95 % 98 06/06/2017 3:03pm Weight 126.00 lb Weight 57.154 kg BP Systolic 82 mmHg BP Diastolic 64 mmHg Heart Rate 64 /min Body Temperature 97.7 F Respiratory Rate 14 /min Height 64 inches 5'4" BMI (Body Mass Index) 21.6 kg/m2 O2 % BldC Oximetry 99 % 05/30/2017 3:13pm Weight 126.00 lb Weight 57.154 kg BP Systolic 84 mmHg BP Diastolic 60 mmHg Heart Rate 62 /min Body Temperature 97.5 F Respiratory Rate 16 /min O2 % BldC Oximetry 99 % 03/18/2016 3:49pm Weight 128.00 lb Weight 58.061 kg BP Systolic 92 mmHg BP Diastolic 64 mmHg Heart Rate 78 /min Body Temperature 97.3 F O2 % BldC Oximetry 99 % 12/05/2015 8:05am Weight 130.00 lb Weight 58.968 kg BP Systolic 96 mmHg BP Diastolic 58 mmHg Heart Rate 56 /min Height 63.5 inches 5'3.50" BMI (Body Mass Index) 22.7 kg/m2 Last Menstrual Period [id number] 08/05/2015 3:27pm Weight 124.00 lb Weight 56.246 kg BP Systolic 102 mmHg BP Diastolic 60 mmHg Heart Rate 66 /min Body Temperature 97.7 F 07/28/2015 12:11pm Weight 126.00 lb Weight 57.154 kg BP Systolic 90 mmHg BP Diastolic 60 mmHg Heart Rate 87 /min Body Temperature 97.6 F motrin at 8am O2 % BldC Oximetry 98 % 12/03/2013 8:38am Weight 129.00 lb Weight 58.514 kg BP Systolic 90 mmHg BP Diastolic 60 mmHg Heart Rate 72 /min 08/22/2013 2:16pm Weight 125.00 lb Weight 56.700 kg BP Systolic 100 mmHg BP Diastolic 62 mmHg Heart Rate 78 /min Body Temperature 96.9 F Height 64 inches 5'4" BMI (Body Mass Index) 21.5 kg/m2 Last Menstrual Period [id number] 08/08/2013 3:26pm Weight 127.00 lb Weight 57.607 kg BP Systolic 88 mmHg BP Diastolic 56 mmHg Heart Rate 80 /min Body Temperature 97.2 F 07/27/2013 11:34am Weight 126.00 lb Weight 57.154 kg BP Systolic 84 mmHg BP Diastolic 60 mmHg Heart Rate 68 /min Body Temperature 97.0 F Height 64 inches 5'4" BMI (Body Mass Index) 21.6 kg/m2 Results Test Date Facility Test Result H/L Range Note Laboratory test 10/31/2017 [facility] Cytology < pending> finding [phone] Laboratory test 10/31/2017 [facility] Lyme Disease Negative Negative 1 finding [phone] Serology Tick-Borne Panel 10/31/2017 [facility] Babesia Negative Negative PCR Blood [phone] microti PCR Babesia ducani Negative Negative Babesia divergens/Mo-1 Negative Negative 2 Anaplasma phagocytophilum Negative Negative Ehrlichia chaffeensis Negative Negative Ehrlichia ewingii/canis Negative Negative Ehrlichia muris-like Negative Negative 3 B. miyamotoi PCR, B Negative Negative 4 Lipid Profile 10/31/2017 [facility] Triglycerides 71 mg/dL 5 (Trig/Chol/HDL) [phone] Cholesterol 238 mg/dL 6 HDL Cholesterol 69.1 mg/dL 7 LDL Cholesterol 155 mg/dL 8 CBC Auto Diff 05/30/2017 [facility] White Blood 5.7 10^3/uL 3.5-10.8 [phone] Count Red Blood Count 4.29 10^6/uL 4.0-5.4 Hemoglobin 14.1 g/dL 12.0-16.0 Hematocrit 42 % 35-47 Mean Corpuscular Volume 97 fL 80-97 Mean Corpuscular Hemoglobin 33 pg High 27-31 Mean Corpuscular HGB Conc 34 g/dL 31-36 Red Cell Distribution Width 14 % 10.5-15 Platelet Count 248 10^3/uL 150-450 Mean Platelet Volume 7.7 um3 7.4-10.4 Abs Neutrophils 3.1 10^3/uL 1.5-7.7 Abs Lymphocytes 2.2 10^3/uL 1.0-4.8 Abs Monocytes 0.4 10^3/uL 0-0.8 Abs Eosinophils 0.1 10^3/uL 0-0.6 Abs Basophils 0 10^3/uL 0-0.2 Abs Nucleated RBC 0 10^3/uL Granulocyte % 53.6 % 38-83 Lymphocyte % 37.7 % 25-47 Monocyte % 7.0 % 0-7 Eosinophil % 1.1 % 0-6 Basophil % 0.6 % 0-2 Nucleated Red Blood Cells % 0 Comp Metabolic Panel 05/30/2017 [facility] Sodium 140 mmol/L 139-145 [phone] Potassium 4.2 mmol/L 3.5-5.0 Chloride 100 mmol/L Low 101-111 Co2 Carbon Dioxide 30 mmol/L 22-32 Anion Gap 10 mmol/L 2-11 Glucose 96 mg/dL 70-100 Blood Urea Nitrogen 13 mg/dL 6-24 Creatinine 0.96 mg/dL High 0.51-0.95 BUN/Creatinine Ratio 13.5 8-20 Calcium 10.0 mg/dL 8.6-10.3 Total Protein 7.8 g/dL 6.4-8.9 Albumin 4.8 g/dL 3.2-5.2 Globulin 3.0 g/dL 2-4 Albumin/Globulin Ratio 1.6 1-3 Total Bilirubin 0.40 mg/dL 0.2-1.0 Alkaline Phosphatase 35 U/L 34-104 Alt 13 U/L 7-52 Ast 24 U/L 13-39 Egfr Non- 69.2 >60 Egfr 89.0 >60 9 Laboratory test 05/30/2017 [facility] Ferritin 10.2 ng/mL Low 11-307 10 finding [phone] Iron & Iron 05/30/2017 [facility] Iron 101 g/dL 50-212 Binding Capacity [phone] Unsaturated Iron Binding 284 g/dL Total Iron Binding Capacity 385 g/dL 250-450 Transferrin 275 mg/dL 203-362 % Iron Saturation 26 % 15-55 Laboratory test 05/30/2017 [facility] TSH (Thyroid 1.07 mcIU/mL 0.34-5.60 11 finding [phone] Stim Horm) Vitamin B12 890 pg/mL 180-914 12 Vitamin D Total 25(Oh) 33.3 ng/mL 20-50 13 Lyme Disease Serology Negative Negative 14 HCG () 05/30/2017 In House Lab Test, neg Urine Stat ([phone] Urine Laboratory test 03/26/2016 [facility] Wound SEE RESULT 15, 16 finding [phone] Culture/Sensi BELOW Anaerobic Culture SEE RESULT BELOW 17 Laboratory test 03/26/2016 [facility] Cytology SEE RESULT 18 finding [phone] Non-Polymer Specialist BELOW Laboratory test 03/22/2016 [facility] Lipase 20 U/L 11.0-8 finding [phone] 2.0 CRP High Sensitivity 16.75 mg/L 19 HCG < 0.60 mIU/mL 20 Comp Metabolic Panel 03/22/2016 [facility] Sodium 134 mmol/L 133-145 [phone] Potassium 4.0 mmol/L 3.5-5.0 Chloride 99 mmol/L Low 101-111 Co2 Carbon Dioxide 30 mmol/L 22-32 Anion Gap 5 mmol/L 2-11 Glucose 85 mg/dL 70-100 Blood Urea Nitrogen 7 mg/dL 6-24 Creatinine 0.83 mg/dL 0.51-0.95 BUN/Creatinine Ratio 8.4 8-20 Calcium 9.4 mg/dL 8.6-10.3 Total Protein 7.7 g/dL 6.4-8.9 Albumin 4.0 g/dL 3.2-5.2 Globulin 3.7 g/dL 2-4 Albumin/Globulin Ratio 1.1 1-3 Total Bilirubin 0.30 mg/dL 0.2-1.0 Alkaline Phosphatase 48 U/L 34-104 Alt 9 U/L 7-52 Ast 13 U/L 13-39 Egfr Non- 83.1 >60 Egfr 106.9 >60 21 CBC Auto Diff 03/22/2016 [facility] White Blood 10.1 10^3/uL 3.5-10.8 [phone] Count Red Blood Count 3.98 10^6/uL Low 4.0-5.4 Hemoglobin 12.5 g/dL 12.0-16.0 Hematocrit 38 % 35-47 Mean Corpuscular Volume 94 fL 80-97 Mean Corpuscular Hemoglobin 31 pg 27-31 Mean Corpuscular HGB Conc 33 g/dL 31-36 Red Cell Distribution Width 14 % 10.5-15 Platelet Count 349 10^3/uL 150-450 Mean Platelet Volume 7 um3 Low 7.4-10.4 Abs Neutrophils 7.5 10^3/uL 1.5-7.7 Abs Lymphocytes 1.8 10^3/uL 1.0-4.8 Abs Monocytes 0.7 10^3/uL 0-0.8 Abs Eosinophils 0.1 10^3/uL 0-0.6 Abs Basophils 0.1 10^3/uL 0-0.2 Abs Nucleated RBC 0 10^3/uL Granulocyte % 74.2 % 38-83 Lymphocyte % 17.9 % Low 25-47 Monocyte % 6.7 % 1-9 Eosinophil % 0.6 % 0-6 Basophil % 0.6 % 0-2 Nucleated Red Blood Cells % 0 Urinalysis Profile 03/22/2016 [facility] Urine Color Yellow [phone] Urine Appearance Clear Urine Specific [place] 1.010 1.010-1.030 Urine pH 7.0 5-9 Urine Urobilinogen Negative Negative Urine Ketones Negative Negative Urine Protein Negative Negative Urine Leukocytes Negative Negative Urine Blood Negative Negative Urine Nitrite Negative Negative Urine Bilirubin Negative Negative Urine Glucose Negative Negative Laboratory test 03/22/2016 [facility] Trichomonas Negative Negative 22 finding [phone] Vaginalis Rna GC/Chlamydia 03/22/2016 [facility] Chlamydia Negative Negative Amplified Rna [phone] trachomatis Rna Neisseria gonorrhoeae (GC) Rna Negative Negative Laboratory 03/22/2016 [facility] Gardnerella/Yeast: SEE RESULT 23 test finding [phone] Vaginal Dna BELOW Laboratory 08/05/2015 [facility] Anaplasma <1:64 < 1:64 24 test finding [phone] Phagocytophilium titer CMV Igg/Igm 08/05/2015 [facility] Cytomegalovirus IgG Negative Negative 25 [phone] Antibody Cytomegalovirus IgM Antibody Negative Negative Emma Armstrong 08/05/2015 [facility] Ebv Capsid Positive Negative Comprehensive [phone] Ag IgG Ab Ebv Capsid Ag IgM Ab Negative Negative Emma-Armstrong Nuclear Antigen Positive Negative Emma-Armstrong Virus Interp See Comment 26 CBC Auto Diff 08/05/2015 [facility] White Blood 6.5 10^3/uL 3.5-10.8 [phone] Count Red Blood Count 4.28 10^6/uL 4.0-5.4 Hemoglobin 12.9 g/dL 12.0-16.0 Hematocrit 40 % 35-47 Mean Corpuscular Volume 92 fL 80-97 Mean Corpuscular Hemoglobin 30 pg 27-31 Mean Corpuscular HGB Conc 33 g/dL 31-36 Red Cell Distribution Width 16 % High 10.5-15 Platelet Count 265 10^3/uL 150-450 Mean Platelet Volume 8 um3 7.4-10.4 Abs Neutrophils 4.1 10^3/uL 1.5-7.7 Abs Lymphocytes 1.9 10^3/uL 1.0-4.8 Abs Monocytes 0.4 10^3/uL 0-0.8 Abs Eosinophils 0.1 10^3/uL 0-0.6 Abs Basophils 0.1 10^3/uL 0-0.2 Abs Nucleated RBC 0 10^3/uL Granulocyte % 62.9 % 38-83 Lymphocyte % 29.1 % 25-47 Monocyte % 5.6 % 1-9 Eosinophil % 1.4 % 0-6 Basophil % 1.0 % 0-2 Nucleated Red Blood Cells % 0 Comp Metabolic Panel 08/05/2015 [facility] Sodium 138 mmol/L 133-145 [phone] Potassium 4.5 mmol/L 3.5-5.0 Chloride 101 mmol/L 101-111 Co2 Carbon Dioxide 30 mmol/L 22-32 Anion Gap 7 mmol/L 2-11 Glucose 90 mg/dL 70-100 Blood Urea Nitrogen 13 mg/dL 6-24 Creatinine 0.88 mg/dL 0.51-0.95 BUN/Creatinine Ratio 14.8 8-20 Calcium 9.8 mg/dL 8.6-10.3 Total Protein 7.8 g/dL 6.4-8.9 Albumin 4.6 g/dL 3.2-5.2 Globulin 3.2 g/dL 2-4 Albumin/Globulin Ratio 1.4 1-3 Total Bilirubin 0.30 mg/dL 0.2-1.0 Alkaline Phosphatase 39 U/L 34-104 Alt 11 U/L 7-52 Ast 20 U/L 13-39 Egfr Non- 77.7 >60 Egfr 99.9 >60 27 Lyme Western 08/05/2015 [facility] Lyme Disease Negative Negative Blot [phone] IgG Ab WB Lyme Disease IgG Bands Present p41, kDa Lyme Disease IgM Ab WB Negative Negative Lyme Disease IgM Bands Present No bands detecte <SEE NOTE> kDa 28 Lyme Disease Interpretation See Comment 29 Babesia Microti Abs 08/05/2015 [facility] Babesia microti <1:64 (Igg,Igm) [phone] IgG Babesia microti IgM <1:20 Babesia microti Interpretation See Comment 30 Urine DIP 08/22/2013 In House Lab Specific [place] 1.005 Low 1.01-1.02 (607)- - Urine pH 6 5-6 Leukocytes ++ Neg Urine Nitrites NEG Neg Total Protein, Urine NEG Neg Urine Glucose NORM Norm Urine Ketones NEG Neg Urobilinogen NORM Norm Urine Bilirubin NEG Neg Urine Blood NEG Neg 1 No evidence of antibodies to B. burgdorferi detected. False negative results may occur in recently infected patients (<=2 weeks) due to low or undetectable antibody levels to B. burgdorferi. If recent exposure is suspected, a second sample should be collected and tested in 2-4 weeks. Test Performed by: [facility] [employer] [facility] [address] [place] [address] 2 ADDITIONAL INFORMATION This test was developed and its performance characteristics determined by [facility] in a manner consistent with CLIA requirements. This test has not been cleared or approved by the U.S. Food and Drug Administration. 3 ADDITIONAL INFORMATION This test was developed and its performance characteristics determined by [facility] in a manner consistent with CLIA requirements. This test has not been cleared or approved by the U.S. Food and Drug Administration. 4 ADDITIONAL INFORMATION This test was developed and its performance characteristics determined by [facility] in a manner consistent with CLIA requirements. This test has not been cleared or approved by the U.S. Food and Drug Administration. Test Performed by: [facility] - [address] [address] 5 Desirable: <150 Borderline High: 150-199 High: 200-499 Very High: >500 6 Desirable: <200 Borderline High: 200-239 High: >239 7 Low: <40 Desirable: 40-60 High: >60 8 Desirable: <100 Near Optimal: 100-129 Borderline High: 130-159 High: 160-189 Very High: >189 9 Because ethnic data is not always readily available, this report includes an eGFR for both -Americans and non- Americans. The National Kidney Disease Education Program (NKDEP) does not endorse the use of the MDRD equation for patients that are not between the ages of 18 and 70, are , have extremes of body size, muscle mass, or nutritional status, or are non- or non-. According to the National Kidney Foundation, irrespective of diagnosis, the stage of the disease is based on the level of kidney function: Stage Description GFR(mL/min/1.73 m(2)) 1 Kidney damage with normal or decreased GFR 90 2 Kidney damage with mild decrease in GFR 60-89 3 Moderate decrease in GFR 30-59 4 Severe decrease in GFR 15-29 5 Kidney failure <15 (or dialysis) 10 [id number] 11 [id number] 12 Normal Range 180 to 914 Indeterminate Range 145 to 180 Deficient Range <145 13 [id number] 14 No evidence of antibodies to B. burgdorferi detected. False negative results may occur in recently infected patients (<=2 weeks) due to low or undetectable antibody levels to B. burgdorferi. If recent exposure is suspected, a second sample should be collected and tested in 2-4 weeks. Test Performed by: [facility] [address] [place] [address] 15 PERITONEAL CAVAITY PELVIC MASS 16 SEE RESULT BELOW Name: GAVINO LOPEZ : [address]: Ashley Avalos MD Acct: [id number] Unit: [id number] AGE: 25 Location: OR Re03/26/16 SEX: F Status: REG [facility] [place] SPEC: [id number] BRANDY: 03/26/16-[address] [facility] [address]: Ashley Avalos MD REQ: [id number] RECD: 03/26/16 STATUS: RES OTHR DR: Stephany Marks TEACHER [employer]IC _ SOURCE: WOUND SPDESC:PERITONEAL ORDERED: Anaerobic Cult, Culture Stain COMMENTS: PERITONEAL CAVAITY PELVIC MASS QUERIES: Specimen Description PERITONEAL CAVITY Procedure Result Reported Site Anaerobic Culture PENDING Wound/Misc Gram Stain Final 03/26/16- 1147 ML 1+ Neutrophils No Organisms Seen Wound/Misc Culture PENDING * ML - MAIN LAB ([facility]) . END OF REPORT * ML=Testing performed at Main Lab DEPARTMENT OF PATHOLOGY, [address] [place] [address] Braeden Mar M.D. Director [facility] # [id number] 17 SEE RESULT BELOW Name: GAVINO LOPEZ : [address]: Ashley Avalos MD Acct: [id number] Unit: [id number] AGE: 25 Location: OR Re03/26/16 SEX: F Status: DEP SDC SPEC: [id number] BRANDY: 03/26/16-[address] [facility] [address]: Ashley Avalos MD REQ: [id number] RECD: 03/26/16 STATUS: ALEJANDRA ANGULO DR: Stephany Marks TEACHER [employer]IC _ SOURCE: WOUND SPDESC:PERITONEAL ORDERED: Anaerobic Cult, Culture Stain COMMENTS: PERITONEAL CAVITY PELVIC MASS QUERIES: Specimen Description PERITONEAL CAVITY Procedure Result Reported Site Anaerobic Culture Final 03/30/16- 827 ML No Growth Day 4 Wound/Misc Gram Stain Final 03/26/16- 1147 ML 1+ Neutrophils No Organisms Seen Wound/Misc Culture Final 03/30/16827 ML No Growth Day 4 * ML - MAIN LAB ([facility]) . END OF REPORT * ML=Testing performed at Main Lab DEPARTMENT OF PATHOLOGY, [address] [place] [address] Braeden Mar M.D. Director [facility] # [id number] 18 SEE RESULT BELOW Name: GAVINO LOPEZ : [address]: Ashley Avalos MD Acct: [id number] Unit: [id number] AGE: 25 Location: OR Re03/26/16 SEX: F Status: AMADA CERNA SPEC: [id number] BRANDY: 03/26/16-[address] [facility] [address]: Ashley Avalos MD REQ: [id number] RECD: 03/26/16 STATUS: JENNIFER ANGULO DR: Stephany Marks [employer]ER [employer]IC _ ORDERED: THIN PREP NON G FINAL DIAGNOSIS Cyst fluid: -- Negative for malignant cells. -- Acute inflammation, and macrophages. CYST - CYST FLUID CLINICAL HISTORY Cyst fluid, pelvic mass. GROSS DESCRIPTION 10 mls cloudy red cyst fluid. Signed (signature on file) Braeden Mar MD 1512 END OF REPORT * ML=Testing performed at Main Lab DEPARTMENT OF PATHOLOGY, [address] [place] [address] Braeden Mar M.D. Director [facility] # [id number] 19 Low risk: <1.00 Average risk: 1.00-3.00 High risk: >3.00 20 <5.0 Negative 5.0 - 25.0 Indeterminate (Repeat testing recommended after 72 hours) >25.0 Positive Perimenopausal women can display HCG levels of up to 20 mIU/mL 21 Because ethnic data is not always readily available, this report includes an eGFR for both -Americans and non- Americans. The National Kidney Disease Education Program (NKDEP) does not endorse the use of the MDRD equation for patients that are not between the ages of 18 and 70, are , have extremes of body size, muscle mass, or nutritional status, or are non- or non-. According to the National Kidney Foundation, irrespective of diagnosis, the stage of the disease is based on the level of kidney function: Stage Description GFR(mL/min/1.73 m(2)) 1 Kidney damage with normal or decreased GFR 90 2 Kidney damage with mild decrease in GFR 60-89 3 Moderate decrease in GFR 30-59 4 Severe decrease in GFR 15-29 5 Kidney failure <15 (or dialysis) 22 GC/Chlamydia Source?: Endocervical Trichomonas Source: Endocervical 23 SEE RESULT BELOW Name: GAVINO LOPEZ : [address]: Obinna North DO Acct: [id number] Unit: [id number] AGE: 25 Location: ED Re03/22/16 SEX: F Status: DEP ER SPEC: [id number] BRANDY: 03/22/[address]: Anai HUANG REQ: [id number] RECD: 03/22/16 STATUS: ALEJANDRA ANGULO DR: Obinna Santoyo TEACHER [employer]IC _ SOURCE: VAGINAL SPDESC: ORDERED: Oskar,Yeast DNA Procedure Result Reported Site Gardnerella/Yeast: Vaginal DNA Final 03/23/16- 0905 ML Organism 1 Negative Gardnerella Organism 2 Negative Vandana The presence of G. vaginalis, although suggestive, is not diagnostic for bacterial vaginosis. Results should be interpreted in conjuction with other clinical and laboratory data available. Women with vaginal discharge should be evaluated for risk factors of cervicitis and pelvic inflammatory disease, toxic shock syndrome (S.aureus), and if present, evaluated for organisms not included in this assay such as N. gonorrhoeae, C. trachomatis, Mobiluncus, Mycoplasma and/or Prevotella. Mixed infections may occur. The performance of this test on patient specimens collected during or immediately after antimicrobial therapy is unknown. The presence or absence of Vandana species, or G. vaginalis cannot be used as a test for therapeutic success or failure. * ML - [facility] ([facility]) . END OF REPORT * ML=Testing performed at Main Lab DEPARTMENT OF PATHOLOGY, [address] [place] [address] Braeden Mar M.D. Director [facility] # [id number] ADDITIONAL INFORMATION Analyte Specific Reagent: This test was developed and its performance characteristics determined by [facility]. It has not been cleared or approved by the U.S. Food and Drug Administration. Test Performed by: [facility] [place] [id number] Ceramic Saw Tender: José Miguel Almodovar II, M.D., Ph.D. 25 Test Performed by: [facility] - [address] [address] Ceramic Saw Tender: José Miguel Almodovar II, M.D., Ph.D. 26 RESULT: Results suggest past infection. ADDITIONAL INFORMATION In most populations, at least 90% of the adult population will have been infected with EBV sometime in the past and therefore, will be positive for anti-VCA/IgG and anti- EBNA. Antibodies to EBNA develop 6-8 weeks after primary infection and remain present for life. Presence of VCA/ IgM antibodies indicates recent primary infection with EBV. Test Performed by: [facility] [place] [address] [place] [address] Ceramic Saw Tender: José Miguel Almodovar II, M.D., Ph.D. 27 Because ethnic data is not always readily available, this report includes an eGFR for both -Americans and non- Americans. The National Kidney Disease Education Program (NKDEP) does not endorse the use of the MDRD equation for patients that are not between the ages of 18 and 70, are , have extremes of body size, muscle mass, or nutritional status, or are non- or non-. According to the National Kidney Foundation, irrespective of diagnosis, the stage of the disease is based on the level of kidney function: Stage Description GFR(mL/min/1.73 m(2)) 1 Kidney damage with normal or decreased GFR 90 2 Kidney damage with mild decrease in GFR 60-89 3 Moderate decrease in GFR 30-59 4 Severe decrease in GFR 15-29 5 Kidney failure <15 (or dialysis) 28 No bands detected 29 Specific serologic response to B. burgdorferi infection is not detected, but cannot rule out early infection during which low or undetectable antibody levels to B. burgdorferi may be present. If clinically indicated, a new serum specimen should be submitted in 7-14 days. ADDITIONAL INFORMATION CDC criteria require >=5 bands for IgG or >=2 bands for IgM for the Immunoblot to be considered positive. Bands (e.g.,p41) may be detected in patients without Lyme disease, and patterns not meeting the CDC criteria should be interpreted with caution. Immunoblot should be ordered only on specimens that are positive or equivocal by a FDA-licensed Lyme disease antibody screening test (e.g., EIA). Test Performed by: [place] [address] Ceramic Saw Tender: José Miguel Almodovar II, M.D., Ph.D. 30 ANTIBODY NOT DETECTED REFERENCE RANGES: IgG <1:64 IgM <1:20 Elevated antibody levels to B. microti indicate exposure to the organism. Human babesiosis infection is transmitted by the bite of an infected Ixodes tick or less frequently from transfusion with blood from an infected donor. Definitive diagnosis is made by identifying intraerythrocytic organisms in peripheral blood. In patients with low parasitemia, antibody detection by IFA is recommended. IgG levels greater than or equal to 1:1024 can be detected in acute phase patients with parasites in blood smears. The IFA assay can be used as a seroepidemiologic tool to study the frequency and distribution of B. microti in endemic areas especially in persons with mixed infections also involving Borrelia burgdorferi. This test was developed and its analytical performance characteristics have been determined by [facility]. It has not been cleared or approved by the U.S. Food and Drug Administration. The FDA has determined that such clearance or approval is not necessary. This assay has been validated pursuant to the CLIA regulations and is used for clinical purposes. Test Performed by: [facility] [address] [place] [address] Procedures Description No Information Available Encounters Type Date Location Provider Dx Diagnosis Office Visit 10/11/2017 Main Office Tatyana Buenrostro, J06.9 Acute upper 8:45a [employer] respiratory infection, unspecified Office Visit 06/06/2017 Main Office Tatyana Buenrostro, R53.83 Other fatigue 3:30p [employer] F32.89 Other specified depressive episodes Office Visit 05/30/2017 3:30p Main Office Tatyana Buenrostro, [employer] R53.83 Other fatigue M79.1 Myalgia B36.0 Pityriasis versicolor Office Visit 03/18/2016 3:45p Main Office Jose Pugh, K59.09 Other constipation Office Visit 12/05/2015 8:00a Main Office Stephany Marks, Z00.00 Encntr for general [employer] adult medical exam w/o abnormal findings Z23 Encounter for immunization Z11.1 Encounter for screening for respiratory tuberculosis Office Visit 08/05/2015 3:30p Main Office Stephany Marks, H66.91 Otitis media, [employer] unspecified, right ear R53.83 Other fatigue Office Visit 07/28/2015 12:00p Main Office Stephany Marks, H66.92 Otitis media, [employer] unspecified, left ear Office Visit 12/03/2013 8:45a Main Office Stephany Marks, 623.8 Vaginal Disorder [employer] Noninflammatory Spec Other Office Visit 08/22/2013 2:15p Main Office Stephany Marks, V70.0 Examination General [employer] Medical Routine AT Health Care Facility Office Visit 08/08/2013 3:15p Main Office Stephany Marks, 386.11 Vertigo Benign [employer] Paroxysmal Position Office Visit 07/27/2013 11:45a Main Office Leeroy Guerrero 477.9 Rhinitis Allergic Storm, [employer] Cause Unspec Plan of Treatment 10/31/2017 - Tatyana Buenrostro, JEANZ00.00 Encounter for general adult medical examination without abnoComments:Anticipatory guidance provided including healthy diet, exercise, and self careZ12.4 Encounter for screening for malignant neoplasm of cervixComments:Pap completed todayNo concerns to STIsK59.00 Constipation, unspecifiedComments:Reports several ys of chronic constipationNo stool changes recentlyReports stool frequency and ease of bowel movements improved on ZpackFollow up:Refer to GI for chronic gbwqxthwpnzrU91.83 Other fatigueComments:Fatigue has improved since she quit one of many jobsShe has enough energy to engage in exercise, art, and socializing.D48.5 Neoplasm of uncertain behavior of skinFollow up:refer to derm to skin cancer screening/skin check
--- OUTSIDE RECORDS SUMMARY | 2017-11-05 19:37 | XMS REPORT | Continuity of Care Document ---
:1990 External Reference #:[id number] Author Name Tatyana Buenrostro NP Address [address] [place] [address] Care Team Providers Name Role Phone Tatyana Buenrostro NP Care Team Information Safety Instruction Police Officer Unavailable Payers Type Date Identification Numbers Payment Provider Subscriber Expires: 2015 Policy Number: [id number] [facility] Anand Lopez PayID: [id number] [address] [place] [address] Expires: 2017 Policy Number: [id number] [facility] Gavino Lopez Medicaid PayID: [id number] [address] [place] [address] Effective: 2017 Policy Number: [id number] [facility] Gavino Lopez Group Name: BC/BS of [facility] 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 1 Shortle, tab daily ASSEMBLY SUPERVISOR for the following 4 days. Ketoconazole 05/30/ Active Shampoo 2% 120ml Use as body B36.0 [facility] 2017 wash from Shortle, head to ASSEMBLY SUPERVISOR knees and leave one for 5 min once a day for 3 days Miralax 03/18/ Active Powder 3350NF 510uni 1 [...] Tablets 1 per day Unknown B-Complex 0000 Dulcolax 03/18/ Hx Tablets DR 5mg 30tabs 1 tab by K59.09 Jsoe 2016 - mouth every [place] 10/11/ night after MD 2018 dinner as needed. After 3 days without stooling. Amoxicillin 08/04/ Hx Tablets 875mg 20tabs 1 tablet H66.91 Stephany 2015 - twice a day Alicia, 12/04/ x 10 days BRAKE REPAIR SUPERVISOR-C 2015 Align 08/04/ Hx Capsules 4mg H66.91 Stephany 2015 - Alicia, 12/04/ BRAKE REPAIR SUPERVISOR-C 2015 Azithromycin 07/27/ Hx Tablets 250mg 6tabs take 2 H66.92 Stephany 2015 - tablets Alicia, 12/04/ today then BRAKE REPAIR SUPERVISOR-C 2015 1 tablet daily for the next 4 days Guaifenesin-Co 07/27/ Hx Syrup 100-10mg/5 240ml 1-2 H66.92 Stephany deine 2015 - ML teaspoon Alicia, 12/04/ every 4-6 BRAKE REPAIR SUPERVISOR-C 2016 hours as needed cough Meclizine HCL 08/08/ Hx Tablets 12.5mg 45tabs take 1 or 2 386.11 Stephany 2013 - tablets Alicia, 12/04/ every 6 BRAKE REPAIR SUPERVISOR-C 2016 hours as needed for dizziness No Active 07/27/ Hx Shawnti Medications Amaris - Cesar Cardenas, 07/27/ BRAKE REPAIR SUPERVISOR-C 2013 Cetirizine HCL 07/27/ Hx Tablets 10mg 30tabs 1 by mouth 477.9 Leeroy 2013 - every day RFanta Cardenas, for BRAKE REPAIR SUPERVISOR-C 2015 allergies Emoquette / Hx Tablets 0.15-30mg- Take One Unknown 0000 - mcg Tablet By 05/30/ Mouth Every 2018 Day Medications Administered in Office Medication Date Status Form Strength Qnty SIG Indications Ordering Provider TB,Intradermal Administered Injection Lab and (PPD, Mantoux) 016 Office Services TB,Intradermal Administered Injection Stephany (PPD, Mantoux) 016 Alicia BRAKE REPAIR SUPERVISOR-C Immunizations CPT Code Status Date Vaccine Lot # [id number] Given 04/01/2017 Influenza Virus Vaccine, Quadrivalent, 3 Yr > Quad, Preserv Free 28204 Given 12/05/2015 Influenza Virus Vaccine, Quadrivalent, 3 Yr > [id number] Quad, Preserv Free 05352 Given 02/29/2008 HPV Vaccine, Gardasil 78038 Given 08/07/2007 HPV Vaccine, Gardasil 76108 Given 04/25/2007 HPV Vaccine, Gardasil 47413 Given 05/06/2006 Menactra (meningococcal conjugate vaccine) 59739 Given 04/13/2004 Td Age 7 to adult (Tenivac, Decavac, Mass Biologics) 04680 Given 11/12/1999 Hep B Vaccine, Ped/Adol Dose 3 Dose (Engerix or Recombivax) 42246 Given 10/14/1998 Hep B Vaccine, Ped/Adol Dose 3 Dose (Engerix or Recombivax) 51358 Given 09/09/1998 Hep B Vaccine, Ped/Adol Dose 3 Dose (Engerix or Recombivax) 94742 Given 05/10/1994 MMR (Measles,Mumps,Rubella) 86857 Given 11/24/1990 DTaP-IPV,Admin To 4 Thru 6 Yrs Of Age Im Use, Kinrix Or Quadracel 80026 Given 07/29/1990 MMR (Measles,Mumps,Rubella) 77694 Given 07/29/1990 Hib (Hemophilus Influenza B) (Acthib) 28437 Given 04/22/1990 Hib (Hemophilus Influenza B) (Acthib) 90248 Given 01/28/1990 Hib (Hemophilus Influenza B) (Acthib) 05136 Given 1989 DTaP-IPV,Admin To 4 Thru 6 Yrs Of Age Im Use, Kinrix Or Quadracel 36064 Given 1989 DTaP-IPV,Admin To 4 Thru 6 Yrs Of Age Im Use, Kinrix Or Quadracel 08072 Given 1989 DTaP-IPV,Admin To 4 Thru 6 Yrs Of Age Im Use, Kinrix Or Quadracel Vital Signs Date Vital Result Comment 10/11/2017 8:54am Weight 124.00 lb Weight 56.246 [...] Mass Index) 22.7 kg/m2 Last Menstrual Period [id number] 08/05/2015 3:27pm Weight 124.00 lb Weight 56.246 [...] Mass Index) 21.5 kg/m2 Last Menstrual Period [id number] 08/08/2013 3:26pm Weight 127.00 lb Weight 57.607 [...] Date Facility Test Result H/L Range Note CBC Auto Diff 05/30/2017 [facility] White Blood 5.7 10^3/uL 3.5-10.8 [phone] Count Red Blood Count 4.29 10^6/uL 4.0-5.4 [...] Cells % 0 Comp Metabolic Panel 05/30/2017 [facility] Sodium 140 mmol/L 139-145 [phone] Potassium 4.2 mmol/L 3.5-5.0 Chloride 100 mmol/L [...] Egfr Non- 69.2 >60 Egfr 89.0 >60 1 Laboratory test 05/30/2017 [facility] Ferritin 10.2 ng/mL Low 11-307 2 finding [phone] Iron & Iron Binding 05/30/2017 [facility] Iron 101 g/dL 50-212 Capacity [phone] Unsaturated Iron Binding 284 g/dL Total Iron Binding Capacity 385 g/dL 250-450 Transferrin 275 mg/dL 203-362 % Iron Saturation 26 % 15-55 Laboratory test 05/30/2017 [facility] TSH (Thyroid 1.07 mcIU/mL 0.34-5.60 3 finding [phone] Stim Horm) Vitamin B12 890 pg/mL 180-914 4 Vitamin D Total 25(Oh) 33.3 ng/mL 20-50 5 Lyme Disease Serology Negative Negative 6 HCG () 05/30/2017 In House Lab Test, neg Urine Stat (607)- - Urine Laboratory test 03/26/2016 [facility] Wound SEE RESULT 7, 8 finding [phone] Culture/Sensi BELOW Anaerobic Culture SEE RESULT BELOW 9 Laboratory test 03/26/2016 [facility] Cytology SEE RESULT 10 finding [phone] Non-Air Quality Specialist BELOW Laboratory test 03/22/2016 [facility] Lipase 20 U/L 11.0-8 finding [phone] 2.0 CRP High Sensitivity 16.75 mg/L 11 HCG < 0.60 mIU/mL 12 Comp Metabolic Panel 03/22/2016 [facility] Sodium 134 mmol/L 133-145 [phone] Potassium 4.0 mmol/L 3.5-5.0 Chloride 99 mmol/L [...] Egfr Non- 83.1 >60 Egfr 106.9 >60 13 CBC Auto Diff 03/22/2016 [facility] White Blood 10.1 10^3/uL 3.5-10.8 [phone] Count Red Blood Count 3.98 10^6/uL Low [...] Blood Cells % 0 Urinalysis Profile 03/22/2016 [facility] Urine Color Yellow [phone] Urine Appearance Clear Urine Specific Pengilly 1.010 1.010-1.030 Urine pH 7.0 5-9 Urine Urobilinogen Negative Negative Urine Ketones Negative Negative Urine Protein Negative Negative Urine Leukocytes Negative Negative Urine Blood Negative Negative Urine Nitrite Negative Negative Urine Bilirubin Negative Negative Urine Glucose Negative Negative Laboratory test 03/22/2016 [facility] Trichomonas Negative Negative 14 finding [phone] Vaginalis Rna GC/Chlamydia 03/22/2016 [facility] Chlamydia Negative Negative Amplified Rna [phone] trachomatis Rna Neisseria gonorrhoeae (GC) Rna Negative Negative Laboratory 03/22/2016 [facility] Gardnerella/Yeast: SEE RESULT 15 test finding [phone] Vaginal Dna BELOW Laboratory 08/05/2015 [facility] Anaplasma <1:64 < 1:64 16 test finding [phone] Phagocytophilium titer CMV Igg/Igm 08/05/2015 [facility] Cytomegalovirus IgG Negative Negative 17 [phone] Antibody Cytomegalovirus IgM Antibody Negative Negative Emma Armstrong 08/05/2015 [facility] Ebv Capsid Positive Negative Comprehensive [phone] Ag IgG Ab Ebv Capsid Ag IgM Ab Negative Negative Emma-Armstrong Nuclear Antigen Positive Negative Emma-Armstrong Virus Interp See Comment 18 CBC Auto Diff 08/05/2015 [facility] White Blood 6.5 10^3/uL 3.5-10.8 [phone] Count Red Blood Count 4.28 10^6/uL 4.0-5.4 [...] Cells % 0 Comp Metabolic Panel 08/05/2015 [facility] Sodium 138 mmol/L 133-145 [phone] Potassium 4.5 mmol/L 3.5-5.0 Chloride 101 mmol/L [...] Egfr Non- 77.7 >60 Egfr 99.9 >60 19 Lyme Western 08/05/2015 [facility] Lyme Disease Negative Negative Blot [phone] IgG Ab WB Lyme Disease IgG Bands Present p41, kDa Lyme Disease IgM Ab WB Negative Negative Lyme Disease IgM Bands Present No bands detecte <SEE NOTE> kDa 20 Lyme Disease Interpretation See Comment 21 Babesia Microti Abs 08/05/2015 [facility] Babesia microti <1:64 (Igg,Igm) [phone] IgG Babesia microti IgM <1:20 Babesia microti Interpretation See Comment 22 Urine DIP 08/22/2013 In House Lab Specific Pengilly 1.005 Low 1.01-1.02 (607)- - Urine pH 6 5-6 Leukocytes ++ Neg Urine Nitrites NEG Neg Total Protein, Urine NEG Neg Urine Glucose NORM Norm Urine Ketones NEG Neg Urobilinogen NORM Norm Urine Bilirubin NEG Neg Urine Blood NEG Neg 1 Because ethnic data is not always readily [...] 15-29 5 Kidney failure <15 (or dialysis) 2 [id number] 3 [id number] 4 Normal Range 180 to 914 Indeterminate Range 145 to 180 Deficient Range <145 5 [id number] 6 No evidence of antibodies to B. burgdorferi detected. False negative results may occur in recently infected patients (<=2 weeks) due to low or undetectable antibody levels to B. burgdorferi. If recent exposure is suspected, a second sample should be collected and tested in 2-4 weeks. Test Performed by: [facility] [address] [place] [address] 7 PERITONEAL CAVAITY PELVIC MASS 8 SEE RESULT BELOW Name: GAVINO LOPEZ : [address]: Ashley Avalos MD Acct: [id number] Unit: [id number] AGE: 25 Location: OR Re03/26/16 SEX: F Status: REG SDC SPEC: [id number] BRANDY: 03/26/16-[address] [facility] DR: Ashley Avalos MD REQ: [id number] RECD: 03/26/16 STATUS: RES OT DR: Stephany Marks ASSEMBLY SUPERVISOR _ SOURCE: WOUND SPDESC:PERITONEAL ORDERED: Anaerobic Cult, Culture Stain COMMENTS: PERITONEAL CAVAITY PELVIC MASS QUERIES: Specimen Description PERITONEAL CAVITY Procedure Result Reported Site Anaerobic Culture PENDING Wound/Misc Gram Stain Final 03/26/16- 1147 ML 1+ Neutrophils No Organisms Seen Wound/Misc Culture PENDING * ML - MAIN LAB ([facility]) . END OF REPORT * ML=Testing performed at Main Lab DEPARTMENT OF PATHOLOGY, [address] [place] [address] Braeden Mar M.D. Director [facility] # [id number] 9 SEE RESULT BELOW Name: GAVINO LOPEZ : [address]: Ashley Avalos MD Acct: [id number] Unit: [id number] AGE: 25 Location: OR Re03/26/16 SEX: F Status: DEP SDC SPEC: [id number] BRANDY: 03/26/16-[address] [place] [address] DR: Ashley Avalos MD REQ: [id number] RECD: 03/26/16 STATUS: ALEJANDRA ANGULO DR: Stephany Marks ASSEMBLY SUPERVISOR _ SOURCE: WOUND SPDESC:PERITONEAL ORDERED: Anaerobic Cult, Culture Stain COMMENTS: PERITONEAL CAVITY PELVIC MASS QUERIES: Specimen Description PERITONEAL CAVITY Procedure Result Reported Site Anaerobic Culture Final 03/30/16- 28 ML No Growth Day 4 Wound/Misc Gram Stain Final 03/26/16- 1146 ML 1+ Neutrophils No Organisms Seen Wound/Misc Culture Final 03/30/16- 827 ML No Growth Day 4 * ML - MAIN LAB ([facility]) . END OF REPORT * ML=Testing performed at Main Lab DEPARTMENT OF PATHOLOGY, [address] [place] [address] Braeden Mar M.D. Director [facility] # [id number] 10 SEE RESULT BELOW Name: GAVINO LOPEZ : [address]: Ashley Avalos MD Acct: [id number] Unit: [id number] AGE: 25 Location: OR Re03/26/16 SEX: F Status: DEP [facility] SPEC: [id number] BRANDY: 03/26/16-[address] [facility] [address]: Ashley Avalos MD REQ: [id number] RECD: 03/26/16 STATUS: JENNIFER ANGULO DR: Setphany Marks ASSEMBLY SUPERVISOR _ ORDERED: THIN PREP NON G FINAL DIAGNOSIS Cyst fluid: -- Negative for malignant cells. -- Acute inflammation, and macrophages. CYST - CYST FLUID CLINICAL HISTORY Cyst fluid, pelvic mass. GROSS DESCRIPTION 10 mls cloudy red cyst fluid. Signed (signature on file) Braeden Mar MD 1512 END OF REPORT * ML=Testing performed at Main Lab DEPARTMENT OF PATHOLOGY, [address] [place] [address] Braeden Mar M.D. Director [facility] # [id number] 11 Low risk: <1.00 Average risk: 1.00-3.00 High risk: >3.00 12 <5.0 Negative 5.0 - 25.0 Indeterminate (Repeat testing recommended after 72 hours) >25.0 Positive Perimenopausal women can display HCG levels of up to 20 mIU/mL 13 Because ethnic data is not always readily [...] 15-29 5 Kidney failure <15 (or dialysis) 14 GC/Chlamydia Source?: Endocervical Trichomonas Source: Endocervical 15 SEE RESULT BELOW Name: GAVINO LOPEZ : [address]: Obinna North DO Acct: [id number] Unit: [id number] AGE: 25 Location: ED Re03/22/16 SEX: F Status: DEP ER SPEC: [id number] BRANDY: 03/22/[address]: Anai HUANG REQ: [id number] RECD: 03/22/161364 STATUS: ALEJANDRA MERCER DR: bOinna Santoyo ASSEMBLY SUPERVISOR _ SOURCE: VAGINAL SPDESC: ORDERED: Oskar,Yeast DNA Procedure Result Reported Site Gardnerella/Yeast: Vaginal DNA Final 03/23/16- 904 ML Organism 1 Negative Gardnerella Organism 2 [...] therapeutic success or failure. * ML - MAIN LAB ([facility]) . END OF REPORT * ML=Testing performed at Main Lab DEPARTMENT OF PATHOLOGY, [address] [place] [address] Braeden Mar M.D. Director [facility] # [id number] 16 ADDITIONAL INFORMATION Analyte Specific Reagent: This test was developed and its performance characteristics determined by [facility]. It has not been cleared or approved by the U.S. Food and Drug Administration. Test Performed by: [facility] [place] [address] Concrete Mixer Operator Helper: José Miguel Almodovar II, M.D., Ph.D. 17 Test Performed by: [facility] [place] [address] Concrete Mixer Operator Helper: José Miguel Almodovar II, M.D., Ph.D. 18 RESULT: Results suggest past infection. ADDITIONAL INFORMATION [...] primary infection with EBV. Test Performed by: [facility] [place] [address] Concrete Mixer Operator Helper: José Miguel Almodovar II, M.D., Ph.D. 19 Because ethnic data is not always readily [...] 15-29 5 Kidney failure <15 (or dialysis) 20 No bands detected 21 Specific serologic response to B. burgdorferi infection [...] screening test (e.g., EIA). Test Performed by: [place] [address] Concrete Mixer Operator Helper: José Miguel Almodovar II, M.D., Ph.D. 22 ANTIBODY NOT DETECTED REFERENCE RANGES: IgG <1:64 [...] analytical performance characteristics have been determined by [facility]. It has not been cleared or approved by the U.S. Food and Drug Administration. The FDA has determined that such clearance or approval is not necessary. This assay has been validated pursuant to the CLIA regulations and is used for clinical purposes. Test Performed by: [facility] [address] [place] [address] Procedures Description No Information Available Encounters Type Date Location Provider Dx Diagnosis Office Visit 06/06/2017 3:30p Main Office Tatyana Buenrostro, JEAN R53.83 Other fatigue F32.89 Other specified depressive episodes Office Visit 05/30/2017 3:30p Main Office Tatyana Buenrostro NP R53.83 Other fatigue M79.1 Myalgia B36.0 Pityriasis versicolor Office Visit 03/18/2016 3:45p Main Office Jose Juancarloscezar, K59.09 Other constipation MD Office Visit 12/05/2015 8:00a Main Office Stephany Marks, Z00.00 Encntr for general BRAKE REPAIR SUPERVISOR-C adult medical exam w/o abnormal findings Z23 Encounter for immunization Z11.1 Encounter for screening for respiratory tuberculosis Office Visit 08/05/2015 3:30p Main Office Stephany Marks, H66.91 Otitis media, BRAKE REPAIR SUPERVISOR-C unspecified, right ear R53.83 Other fatigue Office Visit 07/28/2015 12:00p Main Office Stephany Marks, H66.92 Otitis media, BRAKE REPAIR SUPERVISOR-C unspecified, left ear Office Visit 12/03/2013 8:45a Main Office Stephany Marks, 623.8 Vaginal Disorder BRAKE REPAIR SUPERVISOR-C Noninflammatory Spec Other Office Visit 08/22/2013 2:15p Main Office Stephany Marks, V70.0 Examination General BRAKE REPAIR SUPERVISOR-C Medical Routine AT Health Care Facility Office Visit 08/08/2013 3:15p Main Office Stephany Marks, 386.11 Vertigo Benign BRAKE REPAIR SUPERVISOR-C Paroxysmal Position Office Visit 07/27/2013 11:45a Main Office Leeroy Guerrero 477.9 Rhinitis Allergic Storm, BRAKE REPAIR SUPERVISOR-C Cause Unspec Plan of Treatment 10/11/2017 - Tatyana Buenrostro NPJ06.9 Acute upper respiratory infection, unspecifiedNew Medication:Azithromycin 250 mg - 2 tabs today. 1 tab daily for the following 4 days.Comments:Due to duration and symptoms, abx ordered. Discussed med, action, side effects, proper useEducated on new/worsening symptoms and when to call/return. Patient stated understanding and agrees to plan
--- NOTE | 2017-11-05 20:51 | ED ---
Abdominal Pain/Female - HPI Summary HPI Summary: This is scribe Gregg Michaelfroylan documenting for attending Dr. Kadeem Glez MD. This patient is a 27 year old F presenting to [facility] accompanied by a male with a chief complaint of constant lower left abd pain since 4 days ago. The patient rates the pain 8/10 in severity. Symptoms aggravated by eating. Patient reports general malaise, nausea, and constipation. Patient denies diarrhea, fever, or dysuria. LKMP irregular. No chance of . Pt took acetaminophen MANAGER RFID. Pt denies relief from an enema. Pt sees a vb developer and has no abnormal findings. Pt went on antibiotics a month ago and it helped with the constipation. PMHX ruptured ovarian cyst I, Dr. Glez, personally performed the services described in this documentation as scribed in my presence and it is both accurate and complete. - History of Current Complaint Chief Complaint: EDAbdPain Stated Complaint: ABD PAIN Time Seen by Provider: 11/05/17 20:40 Hx Obtained From: Patient Onset/Duration: Sudden Onset, Lasting Days - 4 Timing: Constant Severity Initially: Moderate Severity Currently: Moderate Pain Intensity: 8 Pain Scale Used: 0-10 Numeric Location: Discrete At: LLQ Character: Sharp, Cramping Aggravating Factor(s): Food Associated Signs and Symptoms: Positive: Constipation, Nausea. Negative: Urinary Symptoms, Vaginal Discharge, Vomiting, Diarrhea Allergies/Adverse Reactions: Allergies Allergy/AdvReac Type Severity Reaction Status Date / Time No Known Allergies Allergy Verified 03/26/16 07:16 Home Medications: Home Medications NK [No Home Medications Reported] 11/05/17 [History Confirmed 11/05/17] PMH/Surg Hx/FS Hx/Imm Hx Endocrine/Hematology History: Reports: Hx Anemia - HX OF NONE RECENTLY Denies: Hx Anticoagulant Therapy, Hx Diabetes Cardiovascular History: Denies: Hx Hypertension Respiratory History: Denies: Hx Asthma GI History: Reports: Hx Irritable Bowel - POSSIBLE History: Denies: Hx Renal Disease Sensory History: Reports: Hx Contacts or Glasses - CONTACTS, WILL WEAR GLASSES DAY OF SURGERY Denies: Hx Hearing Aid Opthamlomology History: Reports: Hx Contacts or Glasses - CONTACTS, WILL WEAR GLASSES DAY OF SURGERY - Surgical History Surgery Procedure, Year, and Place: TONSILS Hx Anesthesia Reactions: No Infectious Disease History: No Infectious Disease History: Denies: Traveled Outside the [place] in Last 30 Days - Family History Known Family History: Negative: Cardiac Disease Family History: FHx of thyroid disease - Social History Alcohol Use: Occasionally Hx Substance Use: No Substance Use Type: Reports: None Hx Tobacco Use: No Smoking Status (MU): Never Smoked Tobacco Review of Systems Positive: Abdominal Pain - LLQ, Nausea. Negative: Diarrhea Negative: dysuria, hematuria Positive: Weakness All Other Systems Reviewed And Are Negative: Yes Physical Exam - Summary Physical Exam Summary: Appearance: Well-appearing, Well-nourished, lying in bed comfortably Skin: Warm, dry, no obvious rash Eyes: sclera anicteric, no conjunctival pallor ENT: mucous membranes moist, pharynx appears normal Neck: Supple, nontender Respiratory: Clear to auscultation, no signs of respiratory distress Cardiovascular: Normal S1, S2. No murmurs. Normal distal pulses in tibial and radial bilaterally. Abdomen: Soft, nontender, normal active bowel sounds present Musculoskeletal: Normal, Strength/ROM Intact Neurological: A&Ox3, awake and alert, mentation is normal, speech is fluent and appropriate Psychiatric: affect is normal, does not appear anxious or depressed Triage Information Reviewed: Yes Vital Signs On Initial Exam: Initial Vitals Temp Pulse Resp BP Pulse Ox 97.9 F 73 14 104/69 100 11/05/17 19:29 11/05/17 19:29 11/05/17 19:29 11/05/17 19:29 11/05/17 19:29 Vital Signs Reviewed: Yes Diagnostics - Vital Signs Vital Signs Temp Pulse Resp BP Pulse Ox 11/05/17 19:29 97.9 F 73 14 104/69 100 - Laboratory Result Diagrams: 11/05/17 21:06 11/05/17 21:03 Lab Statement: Any lab studies that have been ordered have been reviewed, and results considered in the medical decision making process. - Ultrasound No standard instances Ultrasound Interpretation Completed By: Radiologist - 1. Interval resection of large endometrioma. 2. Probable 4.6 cm hemorrhagic follicular cyst in the left ovary, slightly larger than prior study. Otherwise normal pelvic ultrasound. ED Physician has reviewed this report Abdominal Pain Fem Course/Dx - Diagnoses Provider Diagnoses: Ovarian cyst Discharge - Sign-Out/Discharge Documenting (check all that apply): Patient Departure - discharge - Discharge Plan Condition: Good Disposition: HOME Patient Education Materials: Ovarian Cyst (ED) Referrals: Ashley Avalos MD [Medical Doctor] - - Attestation Statements Document Initiated by Scribe: Yes Documenting Scribe: Gregg Tamayo Provider For Whom Scribe is Documenting (Include Credential): Kadeem Glez MD Scribe Attestation: IGregg, scribed for Kadeem Glez MD on 11/05/17 at 2153.
[2017-11-05 21:06] LABS: Urine Appearance Clear; Urine Blood Negative (Negative); Urine Color Straw; Urine Ketones Negative (Negative); Urine Protein Negative (Negative); Urine Specific Gravity 1.004 (1.010-1.030); Urine Urobilinogen Negative (Negative)
[2017-11-05 21:12] LABS: ABS Basophils 0.1 10^3/ul (0-0.2); ABS Eosinophils 0.2 10^3/ul (0-0.6); ABS Lymphocytes 2.3 10^3/ul (1.0-4.8); ABS Monocytes 0.6 10^3/ul (0-0.8); ABS Neutrophils 2.8 10^3/ul (1.5-7.7); ABS Nucleated RBC 0 10^3/ul; Eosinophil % 3.9 % (0-6); Hematocrit 43 % (35-47); Hemoglobin 14.6 g/dl (12.0-16.0); Lymphocyte % 38.3 % (25-47); Mean Corpuscular HGB Conc 34 g/dl (31-36); Mean Corpuscular Hemoglobin 33 pg (27-31); Mean Corpuscular Volume 97 fL (80-97); Mean Platelet Volume 6.7 um3 (7.4-10.4); Nucleated Red Blood Cells % 0.1; Platelet Count 236 10^3/ul (150-450); Red Blood Count 4.37 10^6/ul (4.00-5.40); Red Cell Distribution Width 13 % (10.5-15); White Blood Count 5.9 10^3/ul (3.5-10.8)
--- NOTE | 2017-11-05 21:21 | RAD ---
EXAM: US Pelvis, Transvaginal CLINICAL HISTORY: 27 years old, female; Pain; Pelvic pain; Prior surgery; Surgery date: 6+ months; Surgery type: Left ovarian cyst removed 2016; Patient HX: Endometriosis, irregular periods; Additional info: Llq pain TECHNIQUE: Real-time transvaginal pelvic ultrasound (complete) with image documentation. Transvaginal imaging was used for better evaluation of the endometrium and adnexa. COMPARISON: TRANS US TRANSVAGINAL 03/22/2016 3:42 PM FINDINGS: Uterus/cervix: The uterus measures 6.7 x 4.2 x 4.9 cm. Endometrial thickness is 10 mm. No myometrial mass. Right ovary: The right ovary measures 3.3 x 2.7 x 2.7 cm with normal appearing follicles. Normal blood flow. Left ovary: The left ovary is mildly enlarged and measures 5.5 x 4.6 x 5.1 cm. There is heterogeneous cystic mass and it measuring 4.6 x 4 cm. (Previously it was smaller measuring about 3 cm). Normal blood flow. Free fluid: No free fluid. Previously seen large endometrioma measuring 9 x 5 cm has undergone resection. IMPRESSION: 1. Interval resection of large endometrioma. 2. Probable 4.6 cm hemorrhagic follicular cyst in the left ovary, slightly larger than prior study. Otherwise normal pelvic ultrasound.
[2017-11-05 21:42] LABS: EGFR Non-African American 67.6 (>60)
[2017-11-05 22:13] VITALS: BP 129/78
== END 2017-11-05 22:13 | disposition home or self-care (01) ==
LOC: ED 19:21
DX: N83.202 Unspecified ovarian cyst, left side (principal)
CPT/HCPCS: 36415; 76830; 80053; 81003; 84702; 85025; 86140; 99283

== ENCOUNTER 2018-04-30 18:38 | Emergency (ER) | payer OTHER ==
[2018-04-30 20:51] LABS: ABS Basophils 0.1 10^3/ul (0-0.2); ABS Eosinophils 0.1 10^3/ul (0-0.6); ABS Lymphocytes 2.3 10^3/ul (1.0-4.8); ABS Monocytes 0.7 10^3/ul (0-0.8); ABS Neutrophils 3.8 10^3/ul (1.5-7.7); ABS Nucleated RBC 0 10^3/ul; Eosinophil % 1.2 %; Hematocrit 39 % (33-41); Hemoglobin 13.5 g/dL (12.0-16.0); Lymphocyte % 33.5 %; Mean Corpuscular HGB Conc 34 g/dL (31-36); Mean Corpuscular Hemoglobin 33 pg (27-31); Mean Corpuscular Volume 96 fL (80-97); Mean Platelet Volume 6.7 fL (7.4-10.4); Nucleated Red Blood Cells % 0; Platelet Count 269 10^3/uL (150-450); Red Cell Distribution Width 14 % (10.5-15); White Blood Count 6.9 10^3/uL (3.5-10.8)
[2018-04-30 21:06] LABS: ALT 10 U/L (7-52); AST 18 U/L (13-39); Albumin 4.3 g/dL (3.2-5.2); Albumin/Globulin Ratio 1.5 (1-3); Alkaline Phosphatase 36 U/L (34-104); Anion Gap 5 mmol/L (2-11); BUN/Creatinine Ratio 13.6 (8-20); Blood Urea Nitrogen 12 mg/dL (6-24); C Reactive Protein < 1.00 mg/L (<8.01); CO2 Carbon Dioxide 29 mmol/L (22-32); Calcium 9.6 mg/dL (8.6-10.3); Chloride 104 mmol/L (101-111); EGFR African American 91.9 (>60); Globulin 2.8 g/dL (2-4); Glucose 90 mg/dL (70-100); Potassium 4.4 mmol/L (3.5-5.0); Sodium 138 mmol/L (135-145); Total Protein 7.1 g/dL (6.4-8.9)
[2018-04-30 21:12] LABS: HCG Pregnancy < 0.60 mIU/mL
[2018-04-30 23:43] LABS: Urine Appearance Clear; Urine Bilirubin Negative (Negative); Urine Blood Negative (Negative); Urine Color Straw; Urine Glucose Negative (Negative); Urine Ketones Negative (Negative); Urine Nitrite Negative (Negative); Urine Protein Negative (Negative); Urine Specific Gravity 1.005 (1.010-1.030); Urine Urobilinogen Negative (Negative)
--- NOTE | 2018-05-01 00:45 | ED ---
Abdominal Pain/Female - HPI Summary HPI Summary: Patient complains of abdominal pain 3 weeks. Abdominal pain described as bilateral lower abdomen, left worse than right, crampy, constant with spikes that are worse when eating and associated symptoms of nausea and vomiting 5. History of ovarian cysts. Patient also complains of minimal bowel movements 3 weeks. History of constipation. Patient states ibuprofen provides mild relief from abdominal pain. LMP 4 days late. Denies fever, cough, sore throat, CP, diarrhea, change in urine, vaginal pain, discharge or bleeding. Medical history is none. Abdominal surgical history is surgery for endometriosis 4 years ago. - History of Current Complaint Chief Complaint: EDAbdPain Stated Complaint: ABD PAIN PER PT Time Seen by Provider: 04/30/18 22:00 Hx Obtained From: Patient Onset/Duration: Gradual Onset, Lasting Weeks Timing: Intermittent Episode Lasting Severity Initially: Severe Severity Currently: Severe Pain Intensity: 8 Pain Scale Used: 0-10 Numeric Location: Discrete At: RLQ, Discrete At: LLQ, Suprapubic Radiates: No Character: Cramping Aggravating Factor(s): Food, Movement Alleviating Factor(s): Position Associated Signs and Symptoms: Positive: Constipation, Nausea, Vomiting Allergies/Adverse Reactions: Allergies Allergy/AdvReac Type Severity Reaction Status Date / Time No Known Allergies Allergy Verified 04/30/18 18:52 PMH/Surg Hx/FS Hx/Imm Hx Endocrine/Hematology History: Reports: Hx Anemia - HX OF NONE RECENTLY Denies: Hx Anticoagulant Therapy, Hx Diabetes Cardiovascular History: Denies: Hx Hypertension Respiratory History: Denies: Hx Asthma GI History: Reports: Hx Irritable Bowel - POSSIBLE History: Denies: Hx Renal Disease Sensory History: Reports: Hx Contacts or Glasses - CONTACTS, WILL WEAR GLASSES DAY OF SURGERY Denies: Hx Hearing Aid Opthamlomology History: Reports: Hx Contacts or Glasses - CONTACTS, WILL WEAR GLASSES DAY OF SURGERY - Surgical History Surgery Procedure, Year, and Place: TONSILS Hx Anesthesia Reactions: No Infectious Disease History: No Infectious Disease History: Denies: Traveled Outside the [place] in Last 30 Days - Family History Known Family History: Negative: Cardiac Disease Family History: FHx of thyroid disease - Social History Alcohol Use: Occasionally Hx Substance Use: No Substance Use Type: Reports: None Hx Tobacco Use: No Smoking Status (MU): Never Smoked Tobacco Review of Systems Constitutional: Negative Eyes: Negative ENT: Negative Cardiovascular: Negative Respiratory: Negative Positive: Abdominal Pain, Vomiting, Nausea Genitourinary: Negative Musculoskeletal: Negative Skin: Negative Neurological: Negative Psychological: Normal All Other Systems Reviewed And Are Negative: Yes Physical Exam - Summary Physical Exam Summary: Mild tenderness to palpation of left lower quadrant and right lower quadrant and suprapubic areas of abdomen. Abdominal exam otherwise unremarkable. Lung sounds clear to auscultation bilaterally. RRR. Triage Information Reviewed: Yes Vital Signs On Initial Exam: Initial Vitals Temp Pulse Resp BP Pulse Ox 99.7 F 89 18 110/78 96 04/30/18 18:49 04/30/18 18:49 04/30/18 18:49 04/30/18 18:49 04/30/18 18:49 Vital Signs Reviewed: Yes Appearance: Positive: Well-Appearing, Well-Nourished Skin: Positive: Warm Head/Face: Positive: Normal Head/Face Inspection Eyes: Positive: Normal Neck: Positive: Supple Respiratory/Lung Sounds: Positive: Clear to Auscultation Cardiovascular: Positive: Normal Abdomen Description: Positive: Other: Musculoskeletal: Positive: Normal Neurological: Positive: Normal Psychiatric: Positive: Normal AVPU Assessment: Alert - Jacky Coma Scale Best Eye Response: 4 - Spontaneous Best Motor Response: 6 - Obeys Commands Best Verbal Response: 5 - Oriented Coma Scale Total: 15 Diagnostics - Vital Signs Vital Signs Temp Pulse Resp BP Pulse Ox 04/30/18 20:52 99.9 F 69 16 106/59 98 04/30/18 18:49 99.7 F 89 18 110/78 96 - Laboratory Lab Results: Lab Results 04/30/18 04/30/18 04/30/18 Range/Units 20:43 20:43 20:43 WBC 6.9 (3.5-10.8) 10^3/uL RBC 4.10 (3.70-4.87) 10^6 /uL Hgb 13.5 (12.0-16.0) g/dL Hct 39 (33-41) % MCV 96 (80-97) fL MCH 33 H (27-31) pg MCHC 34 (31-36) g/dL RDW 14 (10.5-15) % Plt Count 269 (150-450) 10^3/uL MPV 6.7 L (7.4-10.4) fL Neut % (Auto) 55.0 % Lymph % (Auto) 33.5 % [place] % (Auto) 9.5 % Eos % (Auto) 1.2 % Baso % (Auto) 0.8 % Absolute Neuts (auto) 3.8 (1.5-7.7) 10^3/ul Absolute Lymphs (auto) 2.3 (1.0-4.8) 10^3/ul Absolute Monos (auto) 0.7 (0-0.8) 10^3/ul Absolute Eos (auto) 0.1 (0-0.6) 10^3/ul Absolute Basos (auto) 0.1 (0-0.2) 10^3/ul Absolute Nucleated RBC 0 10^3/ul Nucleated RBC % 0 Sodium 138 (135-145) mmol/L Potassium 4.4 (3.5-5.0) mmol/L Chloride 104 (101-111) mmol/L Carbon Dioxide 29 (22-32) mmol/L Anion Gap 5 (2-11) mmol/L BUN 12 (6-24) mg/dL Creatinine 0.88 (0.51-0.95) mg/dL Est GFR ( Amer) 91.9 (>60) Est GFR (Non-Af Amer) 76.0 (>60) BUN/Creatinine Ratio 13.6 (8-20) Glucose 90 (70-100) mg/dL Lactic Acid 0.5 (0.5-2.0) mmol/L Calcium 9.6 (8.6-10.3) mg/dL Total Bilirubin 0.40 (0.2-1.0) mg/dL AST 18 (13-39) U/L ALT 10 (7-52) U/L Alkaline Phosphatase 36 (34-104) U/L C-Reactive Protein < 1.00 (<8.01) mg/L Total Protein 7.1 (6.4-8.9) g/dL Albumin 4.3 (3.2-5.2) g/dL Globulin 2.8 (2-4) g/dL Albumin/Globulin Ratio 1.5 (1-3) Lipase 42 (11.0-82.0) U/L Beta HCG, Quant < 0.60 mIU/mL Urine Color Urine Appearance Urine pH (5-9) Ur Specific [place] (1.010-1.030) Urine Protein (Negative) Urine Ketones (Negative) Urine Blood (Negative) Urine Nitrate (Negative) Urine Bilirubin (Negative) Urine Urobilinogen (Negative) Ur Leukocyte Esterase (Negative) Urine Glucose (Negative) 04/30/18 Range/Units 23:35 WBC (3.5-10.8) 10^3/uL RBC (3.70-4.87) 10^6 /uL Hgb (12.0-16.0) g/dL Hct (33-41) % MCV (80-97) fL MCH (27-31) pg MCHC (31-36) g/dL RDW (10.5-15) % Plt Count (150-450) 10^3/uL MPV (7.4-10.4) fL Neut % (Auto) % Lymph % (Auto) % [place] % (Auto) % Eos % (Auto) % Baso % (Auto) % Absolute Neuts (auto) (1.5-7.7) 10^3/ul Absolute Lymphs (auto) (1.0-4.8) 10^3/ul Absolute Monos (auto) (0-0.8) 10^3/ul Absolute Eos (auto) (0-0.6) 10^3/ul Absolute Basos (auto) (0-0.2) 10^3/ul Absolute Nucleated RBC 10^3/ul Nucleated RBC % Sodium (135-145) mmol/L Potassium (3.5-5.0) mmol/L Chloride (101-111) mmol/L Carbon Dioxide (22-32) mmol/L Anion Gap (2-11) mmol/L BUN (6-24) mg/dL Creatinine (0.51-0.95) mg/dL Est GFR ( Amer) (>60) Est GFR (Non-Af Amer) (>60) BUN/Creatinine Ratio (8-20) Glucose (70-100) mg/dL Lactic Acid (0.5-2.0) mmol/L Calcium (8.6-10.3) mg/dL Total Bilirubin (0.2-1.0) mg/dL AST (13-39) U/L ALT (7-52) U/L Alkaline Phosphatase (34-104) U/L C-Reactive Protein (<8.01) mg/L Total Protein (6.4-8.9) g/dL Albumin (3.2-5.2) g/dL Globulin (2-4) g/dL Albumin/Globulin Ratio (1-3) Lipase (11.0-82.0) U/L Beta HCG, Quant mIU/mL Urine Color Straw Urine Appearance Clear Urine pH 7.0 (5-9) Ur Specific [place] 1.005 L (1.010-1.030) Urine Protein Negative (Negative) Urine Ketones Negative (Negative) Urine Blood Negative (Negative) Urine Nitrate Negative (Negative) Urine Bilirubin Negative (Negative) Urine Urobilinogen Negative (Negative) Ur Leukocyte Esterase Negative (Negative) Urine Glucose Negative (Negative) Result Diagrams: 04/30/18 20:43 04/30/18 20:43 Lab Statement: Any lab studies that have been ordered have been reviewed, and results considered in the medical decision making process. Abdominal Pain Fem Course/Dx - Course Course Of Treatment: Patient complains of abdominal pain 3 weeks. Abdominal pain described as bilateral lower abdomen, left worse than right, crampy, constant with spikes that are worse when eating and associated symptoms of nausea and vomiting 5. History of ovarian cysts. Patient also complains of minimal bowel movements 3 weeks. History of constipation. Patient states ibuprofen provides mild relief from abdominal pain. LMP 4 days late. Denies fever, cough, sore throat, CP, diarrhea, change in urine, vaginal pain, discharge or bleeding. Medical history is none. Abdominal surgical history is surgery for endometriosis 4 years ago. Physical exam:Mild tenderness to palpation of left lower quadrant and right lower quadrant and suprapubic areas of abdomen. Abdominal exam otherwise unremarkable. Lung sounds clear to auscultation bilaterally. RRR. vital Signs within normal limits. Labs unremarkable. Ultrasound positive for right ovarian cyst. NSAIDs, hydrocodone , follow up with WRITING MANAGER. Patient understands and improves with plan. - Diagnoses Provider Diagnoses: Right ovarian cyst Discharge - Sign-Out/Discharge Documenting (check all that apply): Patient Departure Patient Received Moderate/Deep Sedation with Procedure: No - Discharge Plan Condition: Stable Disposition: HOME Prescriptions: Ondansetron ODT TAB* [Zofran 4 MG Odt TAB*] 4 mg PO Q8H PRN 4 Days #14 tab.odt PRN Reason: Nausea Oxycodone HCl 5 mg PO Q8H 6 Days #5 tablet MDD 3 tabs Patient Education Materials: Ovarian Cyst (ED), Ruptured Ovarian Cyst (ED) Referrals: Tatyana Buenrostro NP [Primary Care Provider] - Emerita Tyler MD [Medical Doctor] - Additional Instructions: Ibuprofen for pain. If necessary may alternate ibuprofen and Tylenol every 3 hours. Follow-up with WRITING MANAGER Dr. Tyler. Return to the ED for any new or worsening symptoms. - Billing Disposition and Condition Condition: STABLE Disposition: Home
[2018-05-01 01:28] VITALS: BP 96/56
== END 2018-05-01 01:27 | disposition home or self-care (01) ==
LOC: ED 18:38
DX: N83.201 Unspecified ovarian cyst, right side (principal); R11.2 Nausea with vomiting, unspecified; R10.31 Right lower quadrant pain; R10.32 Left lower quadrant pain
CPT/HCPCS: 36415; 76856; 80053; 81003; 83605; 83690; 84702; 85025; 86140; 99282